=== PATIENT | female | born 1950 | race Caucasian/White ===

== ENCOUNTER → 2019-06-25 10:21 | Outpatient (BNVA) | payer MEDICARE, MEDICAID, SELFPAY | PROVIDERS: Family Provider Registered Nurse; PCP Registered Nurse; Visit Provider Registered Nurse | DX: Z09 Encounter for follow-up examination after completed treatment for conditions other than malignant neoplasm (principal); A09 Infectious gastroenteritis and colitis, unspecified | CPT/HCPCS: 80053; 85025 ==

== ENCOUNTER → 2020-02-27 09:35 | Outpatient (BNVA) | payer MEDICARE, MEDICAID, SELFPAY | PROVIDERS: Family Provider Registered Nurse; PCP Registered Nurse; Visit Provider Registered Nurse | DX: R53.83 Other fatigue (principal); E55.9 Vitamin D deficiency, unspecified; Z95.5 Presence of coronary angioplasty implant and graft | CPT/HCPCS: 80053; 81000; 82306; 82607; 84443; 85025 ==

== ENCOUNTER → 2020-10-19 11:07 | Outpatient (BNVA) | payer MEDICARE, MEDICAID, SELFPAY | PROVIDERS: Family Provider Registered Nurse; PCP Registered Nurse; Visit Provider Registered Nurse | DX: I10 Essential (primary) hypertension (principal); E78.5 Hyperlipidemia, unspecified; J44.9 Chronic obstructive pulmonary disease, unspecified; K21.9 Gastro-esophageal reflux disease without esophagitis | CPT/HCPCS: 80053; 80061; 84443 ==

== ENCOUNTER → 2020-12-14 13:23 | Outpatient (BNVA) | payer MEDICARE, MEDICAID, SELFPAY | PROVIDERS: Family Provider Registered Nurse; PCP Registered Nurse; Visit Provider Registered Nurse | DX: I10 Essential (primary) hypertension (principal); M19.071 Primary osteoarthritis, right ankle and foot; E78.00 Pure hypercholesterolemia, unspecified | CPT/HCPCS: 85025; 85651; 86140 ==

== ENCOUNTER → 2021-01-03 15:11 | Outpatient (BNVA) | payer MEDICARE, MEDICAID, SELFPAY | PROVIDERS: Family Provider Registered Nurse; PCP Registered Nurse; Visit Provider Registered Nurse | DX: R51.9 Headache, unspecified (principal); Z20.822 Contact with and (suspected) exposure to COVID-19 | CPT/HCPCS: 87635 ==

== ENCOUNTER → 2021-10-19 10:53 | Outpatient (BNVA) | payer MEDICARE, MEDICAID, SELFPAY | PROVIDERS: Family Provider Registered Nurse; PCP Registered Nurse; Visit Provider Registered Nurse | DX: I10 Essential (primary) hypertension (principal); J44.9 Chronic obstructive pulmonary disease, unspecified | CPT/HCPCS: 80053; 80061; 85025 ==

== ENCOUNTER 2022-01-30 11:23 | Outpatient (CLI) | payer MEDICARE, MEDICAID, SELFPAY ==
--- NOTE | 2022-01-30 11:00 | CT_ITS ---
WS: [id number] LDCT LUNG CANCER SCREENING TECHNIQUE: Noncontrast CT of the chest with coronal and sagittal reformatted images. CLINICAL INFORMATION: Z12.2 - Encounter for screening for malignant neoplasm of... COMPARISON: None. DLP: 86.11 mGy.cm DIvol: Mean CTDIvol: 1.60 (mGy) All CT scans at [facility] use at least one of these dose optimization techniques: automat ed exposure control; mA and/or kV adjustment per patient size (includes targeted exams where dose is matched to clinical indication); or iterative reconstruction. FINDINGS: Groundglass opacity in the LEFT lower lobe about the LEFT inferior hilum with associated bronchovascu lar thickening. This measures approximately 3.3 x 4.5 x 4.1 cm AP by transverse by craniocaudal. This may be infectious or inflammatory in etiology but alveolar carcinoma not excluded. This can be furth er evaluated PET/CT or short-term interval follow-up in 3 months. Additional nonspecific groundglass opacities in the RIGHT upper lobe. RIGHT thyroid nodule measuring 14 mm. Ectatic ascending thoracic aorta measuring 4.1 cm. Vascular narayan cification including coronary. No mediastinal or hilar lymphadenopathy. Adrenal glands are normal. Small esophageal hiatal hernia. CT/CT lung screening 89239 IMPRESSION: Nonspecific LEFT lower lobe groundglass opacity measuring 3.3 x 4.5 x 4.1cm. This can be further evaluated PET/CT versus 3 month follow-up LUNG-RADS: 4A-Probably Suspicious FOLLOW UP: 3 Month LDCT
== END 2022-01-30 11:24 | disposition home or self-care (01) ==
LOC: RAD 11:24
PROVIDERS: Family Provider Registered Nurse; PCP Registered Nurse; Visit Provider Registered Nurse
DX: Z12.2 Encounter for screening for malignant neoplasm of respiratory organs (principal)
CPT/HCPCS: 71271

== ENCOUNTER → 2022-02-07 08:37 | Outpatient (BNVA) | payer MEDICARE, MEDICAID, SELFPAY | PROVIDERS: Family Provider Registered Nurse; PCP Registered Nurse; Visit Provider Surgery | DX: Z12.11 Encounter for screening for malignant neoplasm of colon (principal) | CPT/HCPCS: 99213 ==

== ENCOUNTER 2022-02-23 14:12 | Outpatient (CLI) | payer MEDICARE, MEDICAID, SELFPAY ==
--- NOTE | 2022-02-23 14:19 | MM_ITS ---
WS: [id number] Bilateral screening 3D tomosynthesis digital mammogram, 02/23/2022 Clinical Data: Z12.39 - Encounter for other screening for malignant neop... Comparison: 05/20/2015. Findings: The breast parenchymal pattern shows heterogeneous density. No spiculated masses or clustered calcifi cations are seen. There are no secondary signs of carcinoma. There are mole markers on the left breas t. There are benign calcifications in both breasts. MM/[place] [id number] Impression: 1. Negative bilateral mammogram unchanged. 2. Recommend annual screening mammograms. BIRADS: 1-Negative FOLLOW UP: 1 Year Follow-up The CAD radio program checker was used.
--- NOTE | 2022-02-23 14:19 | XR_ITS ---
WS: [id number] DEXA (DUAL ENERGY X-RAY ABSORPTIOMETRY) Bone mineral density was performed using a Ringly machine. HISTORY: M81.0 - Age-related osteoporosis without current pathology... COMPARISON: None available. Lumbar spine BMD (L1-L4): 1.151 g/cm2 T score: -0.2 Z score: 1.9 Total hip BMD: Left: 0.698 g/cm2. T score: -2.5 Z score: -0.6 Right: 0.680 g/cm2. T score: -2.6 Z score: -0.7 10 year probability of a major osteoporotic fracture is 21.8%. XR/XR DEXA axial skeleton* 08674 IMPRESSION: OSTEOPOROSIS based upon the WHO classification for females.
== END 2022-02-23 14:13 | disposition home or self-care (01) ==
LOC: RAD 14:13
PROVIDERS: Family Provider Registered Nurse; PCP Registered Nurse; Visit Provider Registered Nurse
DX: Z12.31 Encounter for screening mammogram for malignant neoplasm of breast (principal); M81.0 Age-related osteoporosis without current pathological fracture
CPT/HCPCS: 77063; 77067; 77080

== ENCOUNTER 2022-04-19 08:04 | Day surgery (SDC) | payer MEDICARE, MEDICAID, SELFPAY ==
[2022-04-17 13:57] VITALS: BMI 20.7
[2022-04-19 08:32] VITALS: BP 156/86; PULSE 67; RESP 20; TEMP 36.1; O2SAT 98
[2022-04-19] MEDS: sodium chloride 0.9% 1,000 ML 30 ML IV (08:35)
--- NOTE | 2022-04-19 09:08 | ANES.PREANE2 ---
Pre-Anesthetic Assessment Height/Weight: Height 1.6 m Weight 53.07 kg Temp Pulse Resp BP Pulse Ox O2 Del Method 97 F L 67 20 H 156/86 98 04/19/22 08:32 04/19/22 08:32 04/19/22 08:32 04/19/22 08:32 04/19/22 08:32 04/19/22 08:32 Operation Date: 04/19/22 09:45 Proposed Procedures p Colonoscopy 52935,Z12.11(Not Applicable) - Camilo Chadwick DO Familial anesthetic complications: None Was Beta Millicent taken within 24 hours: Yes Was Clonidine taken within 24 hours: N/A Last intake: Intake Last Liquid Date 04/18/22 Last Liquid Time 17:00 Last Solid Date 04/17/22 Last Solid Time 17:00 Social No alcohol and No tobacco Exam alert, oriented x 3, clear to auscultation bilaterally and regular rate & rhythm Airway Mallampati: Class II Dentition: false Pulmonary Chronic Obstructive Pulmonary Disease CV/HEM Coronary Artery Disease (stents in 2013), Hypertension and Myocardial Infarction (2013) Chronic Renal Insufficiency Metabolic Hyperlipidemia Anesthetic Plan ASA status: 3 Anesthesia: MAC Risk of > 500 ml blood loss (7ml/kg in children): No Medications/Allergies Home Medications Medication Instructions Recorded Confirmed Last Taken Type aspirin 81 mg tablet,delayed 81 mg PO DAILY 06/24/19 04/17/22 04/15/22 History release (Adult Aspirin Regimen) albuterol sulfate 90 mcg/actuation 2 puff inhalation Q6H PRN 04/17/22 04/17/22 04/18/22 History aerosol inhaler Shortness Of Breath amlodipine 5 mg tablet 5 mg PO BID 04/17/22 04/17/22 04/18/22 History budesonide-formoterol HFA 160 2 puff inhalation BID 04/17/22 04/17/22 04/18/22 History mcg-4.5 mcg/actuation aerosol inhaler (Symbicort) metoprolol tartrate 25 mg tablet 25 mg PO BID 04/17/22 04/17/22 04/18/22 History simvastatin 40 mg tablet 40 mg PO DAILY 04/17/22 04/17/22 04/18/22 History umeclidinium 62.5 mcg/actuation 1 inh inhalation DAILY 04/17/22 04/17/22 04/18/22 History blister powder for inhalation (Incruse Ellipta) Allergies Allergy/AdvReac Type Severity Reaction Status Date / Time No Known Allergies Allergy Verified 04/17/22 13:47 Current Medications Generic Name Dose Route Start Last Admin Trade Name Freq PRN Reason Stop Dose Admin Sodium Chloride 1,000 mls @ 30 mls/hr 04/19/22 08:15 04/19/22 08:35 Sodium Chloride 0.9% IV 04/20/22 08:14 30 mls/hr .Q24H JOYCE Administration PFSH Anesthesia Medical History COPD (chronic obstructive pulmonary disease) Dental caries Enrolled in chronic care management Hypercholesterolemia Hypertension Infectious gastroenteritis and colitis Myocardial infarction Surgical History H/O colonoscopy 07/18/16 H/O eye surgery as a child from crossed eyes H/O: hysterectomy 1980 partial History of coronary artery stent placement Family History Father Cancer lung Denies family history of Anesthesia complication Bleeding disorder Social History Smoking and tobacco status: former smoker (1999) Alcohol intake: never Marital status: Single Current occupational status: retired Data Anesthesia Cardiac Studies: No Data to Display
--- NOTE | 2022-04-19 10:28 | PM.HP ---
Providers/Chief Complaint Primary Care Provider: DANA Dawkins Chief Complaint: Z12.11 Screening History of Present Illness Grecia Nick is a 71 year old female here for colonoscopy Medications/Allergies Home Medications Medication Instructions Recorded Confirmed Last Taken Type aspirin 81 mg tablet,delayed 81 mg PO DAILY 06/24/19 04/17/22 04/15/22 History release (Adult Aspirin Regimen) albuterol sulfate 90 mcg/actuation 2 puff inhalation Q6H PRN 04/17/22 04/17/22 04/18/22 History aerosol inhaler Shortness Of Breath amlodipine 5 mg tablet 5 mg PO BID 04/17/22 04/17/22 04/18/22 History budesonide-formoterol HFA 160 2 puff inhalation BID 04/17/22 04/17/22 04/18/22 History mcg-4.5 mcg/actuation aerosol inhaler (Symbicort) metoprolol tartrate 25 mg tablet 25 mg PO BID 04/17/22 04/17/22 04/18/22 History simvastatin 40 mg tablet 40 mg PO DAILY 04/17/22 04/17/22 04/18/22 History umeclidinium 62.5 mcg/actuation 1 inh inhalation DAILY 04/17/22 04/17/22 04/18/22 History blister powder for inhalation (Incruse Ellipta) Allergies Allergy/AdvReac Type Severity Reaction Status Date / Time No Known Allergies Allergy Verified 04/17/22 13:47 PFSH Acute PFSH: Medical History COPD (chronic obstructive pulmonary disease) Dental caries Enrolled in chronic care management Hypercholesterolemia Hypertension Infectious gastroenteritis and colitis Myocardial infarction Surgical History H/O colonoscopy 07/18/16 H/O eye surgery as a child from crossed eyes H/O: hysterectomy 1980 partial History of coronary artery stent placement Family History Father Cancer lung Denies family history of Anesthesia complication Bleeding disorder Social History Smoking and tobacco status: former smoker (1999) Alcohol intake: never Marital status: Single Current occupational status: retired Vitals/I&O/Wt Last Vital Signs Temp 97 F L 04/19/22 08:32 Pulse 67 04/19/22 08:32 Resp 20 H 04/19/22 08:32 BP 156/86 04/19/22 08:32 Pulse Ox 98 04/19/22 08:32 O2 Del Method 04/19/22 08:32 Weight last 48 hrs Weight 117 lb A&P Assessment and plan (1) Encounter for screening colonoscopy: Plan Colonoscopy Attestations Medical Necessity Statement*: Home Coding Level of Care Code 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
[2022-04-19 10:50] VITALS: BP 110/68; PULSE 70; RESP 14; TEMP 36.3; O2SAT 99
[2022-04-19 11:00] VITALS: BP 125/79; PULSE 75; RESP 18; O2SAT 97
--- NOTE | 2022-04-19 12:46 | ANE.PACU2 ---
Inpatient post-anesthesia follow up: Airway intact: Yes Vital signs: Temperature 97.4 F Pulse Rate 75 Respiratory Rate 18 Blood Pressure 125/79 Pulse Oximetry 97 Oxygen Delivery Me thod Room Air Oxygen Flow Rate 4 Fraction of Inspir ed Oxygen Hydration adequate: Yes Nausea and vomiting: No Pain level: 1 Mental status: Baseline
== END 2022-04-19 11:18 | disposition home or self-care (01) ==
PROVIDERS: PCP Registered Nurse; Visit Provider Surgery
PROC: 0DJD8ZZ Inspection of Lower Intestinal Tract, Via Natural or Artificial Opening Endoscopic (ICD-10-PCS; CPT 45378; principal; 2022-04-19 09:45)
DX: Z12.11 Encounter for screening for malignant neoplasm of colon (principal); Z86.010 Personal history of colon polyps; Z79.82 Long term (current) use of aspirin; J44.9 Chronic obstructive pulmonary disease, unspecified; E78.00 Pure hypercholesterolemia, unspecified; I10 Essential (primary) hypertension; I25.2 Old myocardial infarction; Z87.891 Personal history of nicotine dependence; I25.10 Atherosclerotic heart disease of native coronary artery without angina pectoris; Z95.5 Presence of coronary angioplasty implant and graft; E78.5 Hyperlipidemia, unspecified
CPT/HCPCS: G0121; J2704; J7030

== ENCOUNTER 2022-07-19 14:57 | Outpatient (CLI) | payer MEDICARE, MEDICAID, SELFPAY ==
--- NOTE | 2022-07-19 16:00 | US_ITS ---
WS: [id number] THYROID ULTRASOUND HISTORY: E04.1 - Nontoxic single thyroid nodule COMPARISON: PET CT 02/11/2022 Right lobe: 2.2 cm x 1.6 cm x 4.4 cm (w x ap x l). Volume: 8.2 cm3. Normal size gland. Markedly hypervascular, hypoechoic nodule in the mid gland measures 2.1 x 1.3 x 2. 1 cm. Hypoechoic nodule with no cystic component. Margins are superimposed. There are a few scattered echogenic foci. Left lobe: 1.1 cm x 1.3 cm x 3.0 cm (w x ap x l). Volume: 2.3 cm3. Normal size and echotexture. No significant or dominant nodules are present. Isthmus: 0.4 cm. US/US thyroid 62100 IMPRESSION: 1. Mid RIGHT thyroid nodule, (TI-RADS 7). Highly suspicious nodule. This was also positive on recent PET/CT. Recommend surgical removal. Thyroid nodule is h ypervascular. 2. Negative LEFT thyroid.
== END 2022-07-19 14:58 | disposition home or self-care (01) ==
LOC: RAD 15:04
PROVIDERS: PCP Registered Nurse; Visit Provider Registered Nurse
DX: E04.1 Nontoxic single thyroid nodule (principal)
CPT/HCPCS: 76536

== ENCOUNTER → 2022-09-12 10:47 | Outpatient (BNVA) | payer MEDICARE, MEDICAID, SELFPAY | PROVIDERS: PCP Registered Nurse; Visit Provider Specialist | DX: I10 Essential (primary) hypertension (principal); Z95.5 Presence of coronary angioplasty implant and graft; E78.00 Pure hypercholesterolemia, unspecified; Z79.82 Long term (current) use of aspirin; Z87.891 Personal history of nicotine dependence | CPT/HCPCS: 93005; 99214 ==

== ENCOUNTER 2022-09-26 07:02 | Outpatient (CLI) | payer MEDICARE, MEDICAID, SELFPAY ==
--- NOTE | 2022-09-26 07:15 | USCV_ITS ---
Grecia Nick Age: 72 Gender: F : 1950 Exam Date: 09/26/2022 07:41 Ordering Phys: Shantell Peterson MD ([email or web address]) Technologist: YANIV [place] [facility] [place]: CHEST PAIN BP: 140 / 60 HR: 71 Rhythm: Sinus Technical Quality: Adequate MEASUREMENTS (Male / Female) Normal Values 2D ECHO LVOT Diameter 2.0 cm LV Ejection Fraction MOD 2C 61.3 % LV Ejection Fraction 2C AL 63.3 % LA Diameter 3.1 cm LA Width 3.8 cm LA Height 4.5 cm RA Width 3.3 cm RA Height 4.3 cm Aorta at Sinotubular Diameter 2.5 cm IVC Diameter 1.1 cm M-MODE Aortic Annulus Diameter 2.9 cm LA Ao Ratio MM 1.1 MV E Point Septal Separation 0.5 cm DOPPLER AV Peak Velocity 149.0 cm/s LVOT Peak Velocity 115.0 cm/s AV Area Cont Eq vti 2.7 cm squared AV Area Cont Eq pk 2.4 cm squared MV Peak Velocity 93.0 cm/s MV Area PHT 2.9 cm squared Mitral E to A Ratio 0.8 MV E' Velocity 44.5 cm/s Mitral E to MV E' Ratio 8.7 Mitral E to LV E' Lateral Ratio 9.6 Mitral E to LV E' Septal Ratio 7.9 TR Peak Velocity 162.7 cm/s TR Peak Gradient 10.6 mmHg TR Mean Velocity 123.6 cm/s TR Mean Gradient 6.4 mmHg TR Velocity Time Integral 46.3 cm TV Peak E Velocity 69.0 cm/s Right Atrial Pressure 8.0 mmHg Pulmonary Artery Systolic Pressu 18.6 mmHg PV Peak Velocity 116.0 cm/s RV Acceleration Time 0.1 s RV Ejection Time 0.3 s RV AcT/ET 0.4 FINDINGS Left Ventricle Left ventricle is normal in size. LV systolic function is normal with EF of 55 to 60%. No regional wall motion abnormalities are seen. Grade 1 diastolic dysfunction Right Ventricle Normal in size and function Right Atrium Normal in size Left Atrium Dilated Mitral Valve Structurally normal mitral valve. Trace mitral regurgitation. Aortic Valve Structurally normal aortic valve. No significant stenosis or regurgitation. Tricuspid Valve Mild tricuspid regurgitation. Pulmonary artery systolic pressure is normal. Pulmonic Valve Not well visualized Pericardium Normal Aorta Normal in size IVC Appears to be normal CONCLUSIONS LV systolic function is normal with EF 55 to 60%. Grade 1 diastolic dysfunction Left atrial dilation Trace mitral regurgitation Mild tricuspid regurgitation No comparison studies are available Francisco Flores MD (Electronically Signed) Final Date: 27 September 2022 11:49 S
== END 2022-09-26 07:03 | disposition home or self-care (01) ==
LOC: RAD 07:09
PROVIDERS: PCP Registered Nurse; Visit Provider Specialist
DX: I25.2 Old myocardial infarction (principal); Z01.818 Encounter for other preprocedural examination; Z95.5 Presence of coronary angioplasty implant and graft
CPT/HCPCS: 93306

== ENCOUNTER 2022-09-26 07:12 | Outpatient (CLI) | payer MEDICARE, MEDICAID, SELFPAY ==
[2022-09-26 08:03] VITALS: BMI 20.7
--- NOTE | 2022-09-26 08:19 | ECG_ITS ---
[facility] Test Date: 2022-09-26 Pat Name: Grecia Nick Department: Room: Gender: Female [employer] Helper: : 1950 Requested By: Shantell Peterson Order Number: [id number] Octavio MD: Ajay Echeverria M.D. Interpretive Statements NAME OF STUDY: LEXISCAN SESTAMIBI STRESS TEST INDICATION: Cardiac clearance, PROCEDURE: At the baseline, the EKG revealed normal sinus rhythm with some nonspecific T wave changes. The baseline heart was 79 bpm with a blood pressue of 148/70 mm of Hg. Lexiscan was infused over a period of 20 seconds. A total of 0.4 milligrams of Lexiscan was infused. The stress phase was continued for a total of 5 minutes. Heart rate at the end of the stress phase was 108 bpm with a blood pressure 130/64 mm of Hg. The EKG at the peak infusion revealed no significant changes. Sestamibi was injected 20 seconds after the Lexiscan infusion. Heart rate at the end of the recovery phase was thank you for the opportunity to evaluate this patient and make these recommendations bpm with a blood pressure of 119/63 mm of Hg. CONCLUSION: 1. No significant EKG changes with the LexiScan infusion 2. No LexiScan induced chest pain or cardiac arrhythmia 3. Normal blood pressure and heart rate response 4. Sestamibi/sestamibi perfusion scan pending; see separate report. Electronically Signed On 10-01-2022 17:00:32 CDT by jAay Echeverria M.D. [email or web address]
--- NOTE | 2022-09-26 08:19 | NMCV_ITS ---
NM nadya perf SPECT r/s* [id number] Grecia Nick Age: 72 Gender: F : 1950 Exam Date: 09/26/2022 09:15 Ordering Phys: Shantell Peterson MD ([email or web address]) Technologist: KRUPA Vanegas Exam Location: [facility] Indications: CORONARY ANGIOPLASTY STATUS, ATHEROSCLEROTIC HEART DISEASE STRESS TEST Please see separate stress test report in [facility] for full findings IMAGE PROTOCOL Rest/Stress 1 Lexiscan Day Radiopharmaceutical Dose (mCi) Administration Site Administered by Rest: Tc-99m 10.8 IV KRUPA Hannah Sestamibi Stress:Tc-99m 32.4 IV KRUPA Hannah Sestamibi Rest: 26-Sep-2022 60 Discovery 630 Stress: 26-Sep-2022 30 Discovery 630 0.4mg Lexiscan. Images obtained in supine and prone position. SPECT RESULTS Technical Quality: Excellent Raw Data Analysis: Normal Image Corrections: No attenuation or motion correction applied Summed Stress Score: 0 Summed Rest Score: 3 Summed Difference Score: 0 PERFUSION FINDINGS Fairly uniform myocardial tracer uptake with no significant perfusion normalities FUNCTIONAL RESULTS (calculated via Gated SPECT) Stress Image LV EF (%): 75 Stress EDV (mL):56 TID: 0.89 Stress ESV (mL):14 FUNCTIONAL FINDINGS: Segmental wall motion analysis revealing no gross wall motion abnormalities IMPRESSIONS 1. Fairly uniform myocardial tracer uptake with no significant perfusion abnormalities. 2. Normal LV ejection fraction 75%. 3. LV wall motion analysis revealing no gross wall motion abnormalities. 4. Normal LV volume Low probability for coronary ischemia, based on the above findings Dr Ajay Echeverria MD FACC (Electronically Signed) Final Date: 26 September 2022 17:31 S
[2022-09-26] MEDS: regadenoson 0.4 Mg/5 ml Syringe IVP (10:08)
[2022-09-26 10:30] VITALS: BP 119/63; PULSE 94
== END 2022-09-26 07:13 | disposition home or self-care (01) ==
LOC: CDL 07:15
PROVIDERS: PCP Registered Nurse; Visit Provider Specialist
DX: I25.10 Atherosclerotic heart disease of native coronary artery without angina pectoris (principal); Z98.62 Peripheral vascular angioplasty status
CPT/HCPCS: 36415; 78452; 93017; 93306; 96374; A9500; J2785

== ENCOUNTER → 2022-10-04 10:54 | Outpatient (BNVA) | payer MEDICARE, MEDICAID, SELFPAY | PROVIDERS: PCP Nurse Practitioner Family; Visit Provider Internal Medicine Cardiovascular Disease | DX: Z01.810 Encounter for preprocedural cardiovascular examination (principal); E04.1 Nontoxic single thyroid nodule; I25.2 Old myocardial infarction; Z95.5 Presence of coronary angioplasty implant and graft; F41.8 Other specified anxiety disorders; I10 Essential (primary) hypertension; E78.00 Pure hypercholesterolemia, unspecified; J44.9 Chronic obstructive pulmonary disease, unspecified; Z87.891 Personal history of nicotine dependence; Z79.82 Long term (current) use of aspirin | CPT/HCPCS: 80053; 80061; 84439; 84443; 84481; 99213 ==

== ENCOUNTER 2022-10-24 13:44 | Observation (INO) | payer MEDICARE, MEDICAID, SELFPAY ==
[2022-10-23 09:05] VITALS: BMI 21.4
[2022-10-24] VITALS (26 sets, daily range): BP systolic 126–165; BP diastolic 57–100; PULSE 62–108; RESP 11–34; TEMP 36.3–36.6; O2SAT 92–97
[2022-10-24] MEDS: sodium chloride 0.9% 1,000 ML 30 ML IV (10:01)
--- NOTE | 2022-10-24 10:45 | W.PM.OPSUD ---
Surgery/Procedure H&P Update DATE OF PROCEDURE: October 24, 2022 DATE H&P PERFORMED: 10/16/22 PRIMARY INDICATION FOR PROCEDURE: Right thyroid nodule with suspicious FNA biopsy PLANNED PROCEDURE: Operation Date: 10/24/22 11:00 Proposed Procedures p Right Hemithyroidectomy 05818,E04.1(Right) - Stewart Rosen MD
[2022-10-24] MEDS: ceFAZolin 2,000 MG in sodium chloride 0.9% (plus) 50 ML 100 MG IV ×2 (10:55→18:18)
[2022-10-24] MEDS: neomycin-poly-bacitracin oint 28 gm 1 APPLIC TOPICAL (11:00)
[2022-10-24] MEDS: fluorescein 1 mg Strip XX (11:45)
[2022-10-24] MEDS: ceFAZolin 1,000 mg SDV 1000 MG IRRIGATION (12:00)
[2022-10-24] MEDS: lidocaine-epi 1% 20 mL INJ INJECTION (12:15)
[2022-10-24] MEDS: triamcinolone 40 mg/mL SDV IM (12:15)
[2022-10-24] MEDS: EPINEPHrine 1 mg/mL INJ 3 MG XX (12:15)
[2022-10-24] MEDS: thrombin 5,000 unit SDV 5000 UNIT XX (12:15)
--- NOTE | 2022-10-24 13:16 | P.OP_ITS ---
Operative Report Date of procedure: October 24, 2022 Pre-op diagnosis: Right thyroid nodule with a suspicious FNA Biopsy Post-op diagnosis: same Post-op findings: Right thyroid nodule O/W normal right anterior neck exam Procedure done: right thyroid lobectomy Implants: None Specimens removed/disposition: Right thyroid lobe Pathology: Right thyroid lobe Surgeon: Stewart Rosen Orthopedic Nurse Practitioner: Magdy Ng Anesthesia: General Estimated blood loss (mL): 5 IV fluids (mL): 600 Complications: None Findings: Right thyroid nodule - midpole Intact recurrent right laryngeal nerve Intact/viable right upper and right lower parathyroid glands O/W normal right anterior neck exam Condition: stable Disposition: ICU Brief History: 72 yo wf with a h/o a PET positive right thyroid lobe nodule with a supicious FNA biopsy who desires thyroid lobectomy. Procedure: The patient was identified in the preop holding area taken the operating where he was placed on the operating table in the supine position. Anesthesia was obtained with general endotracheal anesthesia. The Nirvana nerve monitoring electrode was placed on the patient's endotracheal tube prior to intubation and its position was ensured using the glide scope. At this point an incision was drawn out between the heads of the sternocleidomastoid muscles 2 fingerbreadths above the sternal notch and was injected with local anesthesia. The patient was then prepped and draped in the usual sterile fashion. The incision was then made with a 15 blade and was carried down through the subcutaneous tissues using electrocautery. The dissection proceeded down to the strap muscles which were then elevated off of the right thyroid lobe. The trachea and larynx were exposed and the thyroid isthmus was dissected off of the anterior trachea. The thyroid isthmus was then divided with the harmonic scalpel. At this point attention was turned to the right thyroid lobe which was dissected circumferentially down to the tracheoesophageal groove. The Nirvana nerve monitoring hemostat was used to stimulate the vagus nerve in the carotid sheath to ensure the integrity of the monitoring system. At this point attention was turned to the right inferior pole of the thyroid right thyroid lobe which was dissected free from the surrounding tissues. The thyrothymic horn was dissected off of the inferior pole as well as the middle thyroid vein. The right thyroid lobe was then rotated medially and then dissection began on the capsule of the right thyroid lobe in the tracheoesophageal groove. The superior pole vessels were dissected individually and were clamped with ligaclips and divided. As the right thyroid lobe was rotated medially the recurrent laryngeal nerve and superior laryngeal nerves were identified and preserved in place. The superior and inferior parathyroid glands were also identified and preserved in place bilaterally. Once this was accomplished, hemostasis was achieved with bipolar cautery and the tracheoesophageal groove was inspected for hemostasis which was found to be adequate. At this point the tracheoesophageal groove was filled with Gelfoam soaked in thrombin and Decadron, and a drain was placed in the wound. The wound was then closed with interrupted 4 Monocryl sutures subcu and a 5-0 Monocryl in the subcuticular space. The final closure was accomplished with Dermabond and Steri-Strips. At this point the procedure was terminated and control of the patient was returned to anesthesia where she underwent an uneventful reversal of anesthesia and extubation was taken to recovery in stable condition. There were no operative or anesthetic complications.
--- NOTE | 2022-10-24 13:39 | ANES.PREANE2 ---
Pre-Anesthetic Assessment Height/Weight: Height 1.6 m Weight 54.885 kg Temp Pulse Resp BP Pulse Ox O2 Del Method 97.4 F L 62 16 165/99 97 Room Air 10/24/22 09:47 10/24/22 09:47 10/24/22 09:47 10/24/22 09:47 10/24/22 09:47 10/24/22 09:48 Operation Date: 10/24/22 11:00 Proposed Procedures p Right Hemithyroidectomy 04561,E04.1(Right) - Stewart Rosen MD Familial anesthetic complications: none Was Beta Millicent taken within 24 hours: Yes Was Clonidine taken within 24 hours: N/A Last intake: Intake Last Liquid Date 10/23/22 Last Liquid Time 22:00 Last Solid Date 10/23/22 Last Solid Time 18:00 Social Tobacco and No alcohol Exam alert, oriented x 3, clear to auscultation bilaterally and regular rate & rhythm Airway Submandibular: within normal limits Cervical ROM: within normal limits Mallampati: Class II Dentition: false Pulmonary Chronic Obstructive Pulmonary Disease CV/HEM Coronary Artery Disease (stent), Hypertension, Myocardial Infarction and Peripheral Vascular Disease Metabolic Thyroid Disease Anesthetic Plan ASA status: 3 Anesthesia: General Medications/Allergies Home Medications Medication Instructions Recorded Confirmed Last Taken Type aspirin 81 mg tablet,delayed 81 mg PO DAILY 06/24/19 10/23/22 10/16/22 History release (Adult Aspirin Regimen) budesonide-formoterol HFA 160 2 puff inhalation BID #10.2 grams 05/30/22 10/23/22 10/23/22 Rx mcg-4.5 mcg/actuation aerosol inhaler (Symbicort) Lactobacillus acidophilus 1,000 mmu cells PO DAILY 09/12/22 10/23/22 10/23/22 History (Acidophilus capsule) calcium citrate 200 mg (950 mg) 200 mg PO DAILY 09/12/22 10/23/22 Unknown History tablet alprazolam 0.25 mg tablet 0.125 mg PO DAILY 10/04/22 10/23/22 10/24/22 07:30 History umeclidinium 62.5 mcg/actuation See Rx Instructions .Route 10/17/22 10/23/22 10/23/22 Rx blister powder for inhalation .COMPLEX #30 ea (Incruse Ellipta) albuterol sulfate 90 mcg/actuation 2 inh inhalation Q6H PRN Shortness 10/23/22 10/23/22 10/22/22 History aerosol inhaler Of Breath amlodipine 5 mg tablet 5 mg PO BID 10/23/22 10/23/22 10/23/22 History metoprolol tartrate 25 mg tablet 25 mg PO BID 10/23/22 10/23/22 10/24/22 07:30 History simvastatin 40 mg tablet 40 mg PO DAILY 10/23/22 10/23/22 10/22/22 History Allergies Allergy/AdvReac Type Severity Reaction Status Date / Time No Known Allergies Allergy Verified 10/23/22 09:00 Current Medications Generic Name Dose Route Start Last Admin Trade Name Freq PRN Reason Stop Dose Admin Sodium Chloride 1,000 mls @ 30 mls/hr 10/24/22 09:45 10/24/22 10:01 Sodium Chloride 0.9% IV 10/25/22 09:44 30 mls/hr .Q24H JOYCE Administration PFSH Anesthesia Medical History COPD (chronic obstructive pulmonary disease) Dental caries Enrolled in chronic care management Hypercholesterolemia Hypertension Infectious gastroenteritis and colitis Myocardial infarction Surgical History H/O colonoscopy 07/18/16 H/O eye surgery as a child from crossed eyes H/O: hysterectomy 1980 partial History of coronary artery stent placement S/P cataract surgery Family History Father Cancer lung Mother Thyroid disease Denies family history of Anesthesia complication Bleeding disorder Social History Smoking and tobacco status: former smoker (1999) Alcohol intake: never Substance/Drug Use: never Marital status: Single Current occupational status: retired Data Anesthesia Cardiac Studies: Echocardiogram 09/26/22 Sestamibi Stress Test (Cardiology) 09/26/22
--- NOTE | 2022-10-24 14:50 | ANE.PACU2 ---
Inpatient post-anesthesia follow up: Airway intact: Yes Vital signs: Temperature 97.4 F Pulse Rate 80 Respiratory Rate 16 Blood Pressure 165/99 Pulse Oximetry 94 Oxygen Delivery Me thod Room Air Oxygen Flow Rate Fraction of Inspir ed Oxygen Hydration adequate: Yes Nausea and vomiting: No Pain level: 3 Mental status: Baseline
[2022-10-24] MEDS: albuterol 2.5 mg/3 mL Neb INHALATION ×2 (16:05→20:07)
[2022-10-24] MEDS: amlodipine 5 mg Tablet PO (16:24)
[2022-10-24] MEDS: lactated ringers 1,000 ML 100 ML IV (16:25)
--- NOTE | 2022-10-24 17:37 | PM.PN ---
Subjective Subjective: 72 yo wf who is night of surgery s/p right hemithyroidectomy. The patient reports that she is doing well. She is o/w without c/o. Medications: Reviewed: Yes Vitals/I&O/Wt Last Vital Signs Temp 97.4 F L 10/24/22 09:47 Pulse 74 10/24/22 16:05 Resp 16 10/24/22 15:55 BP 165/99 10/24/22 09:47 Pulse Ox 95 10/24/22 15:55 O2 Del Method Room Air 10/24/22 15:55 10/24/22 10/24/22 10/24/22 06:59 14:59 22:59 Intake Total 50 / 50 Output Total 0 / 0 Balance 50 / 50 Weight last 48 hrs Weight 54.885 kg Physical Exam Const: COMMON NORMALS: no acute distress and patient oriented x3 HENMT: COMMON NORMALS: normocephalic and Normal external nose present HEAD & SCALP: normocephalic FACE & SINUS: normal facial exam NOSE: Normal external nose present Eye: COMMON NORMALS: EOMs intact bilaterally and conjunctivae normal CONJUNCTIVA: Yes conjunctivae normal Neck/C-Spine: COMMON NORMALS: no lymphadenopathy and supple GENERAL: Yes other (The neck wound is intact without swelling. Voice unchanged from preop. ) Chest: COMMONS NORMALS: normal inspection of the chest Resp: COMMON NORMALS: normal respiratory effort, No retractions, No use of accessory muscles and clear to auscultation bilaterally AUSCULTATION: clear to auscultation bilaterally Cardio: COMMON NORMALS: regular rate, regular rhythm and No murmurs present (Cardio) RATE: regular rate RHYTHM: regular rhythm Extremity: COMMON NORMALS: normal to inspection Neuro: COMMON NORMALS: patient oriented x3 Urinary Catheter Management: Tapia: Cath Placed During This Visit: yes Urinary Catheter Date of Insertion: 10/24/22 Urinary Catheter Time of Insertion: 11:40 A&P Assessment and plan (1) Thyroid nodule: Impression: 72 yo wf night of surgery s/p right hemithyroidectomy doing well Plan: - Overnight ICU observation - Closed suction drainage - Pain control - Regular diet - Anticipate d/c in the am Attestations Medical Necessity Statement*: The patient requires overnight observation of her airway Coding Level of Care Code Acute Code for Chg Fwd Diagnoses Thyroid nodule E04.1
--- NOTE | 2022-10-24 18:34 | PC.NURSE ---
Pt was admitted to ICU at 1315 via bed on room air. Daughter at bedside. Pt is resting with all vital signs WNL. Dentures and hearing aid placed at bedside. Stitches and drain present on front of neck.
[2022-10-24] MEDS: budesonide 0.5 mg/2 mL Neb INHALATION (20:06)
[2022-10-24] MEDS: metoprolol tartrate 25 mg Tablet PO (20:53)
[2022-10-24] MEDS: atorvastatin 40 mg Tablet 20 MG PO (20:53)
[2022-10-24] MEDS: famotidine 20 mg/2 mL INJ IVP (20:54)
[2022-10-24] MEDS: HYDROcodone-acetaminophen 5-325 mg Tablet 1 TAB PO (22:40)
[2022-10-25] VITALS (13 sets, daily range): BP systolic 127–153; BP diastolic 66–81; PULSE 70–90; RESP 12–30; TEMP 37–37.1; O2SAT 90–95
[2022-10-25] MEDS: lactated ringers 1,000 ML 100 ML IV (02:49)
[2022-10-25] MEDS: ceFAZolin 2,000 MG in sodium chloride 0.9% (plus) 50 ML 100 MG IV (02:50)
--- NOTE | 2022-10-25 04:40 | PM.PN ---
Subjective Subjective: 72 yo wf who is POD #1 s/p right hemithyroidectomy who is doing well. She reports that she is taking po well. Her pain is well controlled with po Hydrocodone. The patient is o/w without c/o. Medications: Reviewed: Yes Vitals/I&O/Wt Last Vital Signs Temp 97.8 F 10/24/22 20:00 Pulse 70 10/25/22 00:30 Resp 26 H 10/25/22 00:30 BP 131/69 10/25/22 00:30 Pulse Ox 95 10/25/22 00:30 O2 Del Method Room Air 10/24/22 20:00 10/24/22 10/24/22 10/25/22 14:59 22:59 06:59 Intake Total 50 / 50 530 / 580 1000 / 1580 Output Total 0 / 0 Balance 50 / 50 510 / 560 1000 / 1560 Weight last 48 hrs Weight 54.885 kg Physical Exam Const: COMMON NORMALS: no acute distress, patient oriented x3 and alert HENMT: COMMON NORMALS: normocephalic, atraumatic and Normal external nose present HEAD & SCALP: normocephalic and atraumatic FACE & SINUS: normal facial exam NOSE: Normal external nose present MOUTH: lip normal Eye: COMMON NORMALS: Equal, round and reactive pupils present, EOMs intact bilaterally and no scleral icterus PUPIL: Yes Equal, round and reactive pupils present Neck/C-Spine: COMMON NORMALS: full ROM and supple GENERAL: Yes other (Neck wound intact without swelling. Voice unchanged from preop.) Resp: COMMON NORMALS: normal respiratory effort, No retractions, No use of accessory muscles and clear to auscultation bilaterally AUSCULTATION: clear to auscultation bilaterally Cardio: COMMON NORMALS: regular rate, regular rhythm and No murmurs present (Cardio) RATE: regular rate RHYTHM: regular rhythm GI: COMMON NORMALS: Normal to inspection, nondistended, normoactive bowel sounds present Extremity: COMMON NORMALS: normal to inspection Neuro: COMMON NORMALS: patient oriented x3 SENSORIUM/ORIENTATION: Yes alert Urinary Catheter Management: Tapia: Cath Placed During This Visit: yes Urinary Catheter Date of Insertion: 10/24/22 Urinary Catheter Time of Insertion: 11:40 A&P Assessment and plan (1) Thyroid nodule: Impression: Right thyroid nodule with suspicious FNA biopsy doing well s/p right hemithyroidectomy Plan: - Regular diet - D/C to home - Continue closed suction drain - Hydrocodone () tabs: take 1-2 tabs po Q5 hours prn pain, #25, NR - F/U in Dr. Rosen's office on 10/27/22 @ 13:00 - Contact Dr. Rosen for any problems - Resume all preop medications Attestations Medical Necessity Statement*: The patient required overnight observation of her airway Coding Level of Care Code Acute Code for Chg Fwd Diagnoses Thyroid nodule E04.1
[2022-10-25] MEDS: albuterol 2.5 mg/3 mL Neb INHALATION (07:35)
[2022-10-25] MEDS: budesonide 0.5 mg/2 mL Neb INHALATION (07:35)
[2022-10-25] MEDS: metoprolol tartrate 25 mg Tablet PO (08:07)
[2022-10-25] MEDS: amlodipine 5 mg Tablet PO (08:07)
[2022-10-25] MEDS: docusate sodium 100 mg Capsule PO (08:07)
--- NOTE | 2022-10-25 10:28 | PC.NURSE ---
Patient and family at bedside provided with extensive education on JAIRON drain management, surgical site care, S/S of infection and when to seek help. Patient instructed on bathing care at home, follow up appointments, norco use and home medications. Patient and family had no questions at time of discharge, provided with portal information and phone numbers to call if any questions came up at home. Written education provided and reviewed with patient and family member at bedside, both verbalized understanding of all teachings. IV removed by patient at beginning of shift and refusal from patient to restart IV access honored. IV site covered with band-aid, no visible bleeding at time of discharge. Patient brought via wheelchair to personal vehicle with daughter as primary pizza delivery driver.
== END 2022-10-25 10:25 | disposition home or self-care (01) ==
LOC: ICU 20:30
PROVIDERS: Admitting Provider Specialist; PCP Nurse Practitioner Family; Visit Provider Specialist
PROC: (CPT 60220; principal; 2022-10-24 11:00)
DX: C73 Malignant neoplasm of thyroid gland (principal); E04.1 Nontoxic single thyroid nodule; J44.9 Chronic obstructive pulmonary disease, unspecified; I25.10 Atherosclerotic heart disease of native coronary artery without angina pectoris; Z95.5 Presence of coronary angioplasty implant and graft; I10 Essential (primary) hypertension; I25.2 Old myocardial infarction; I73.9 Peripheral vascular disease, unspecified; Z79.82 Long term (current) use of aspirin; Z87.891 Personal history of nicotine dependence
CPT/HCPCS: 60220; 12345; 51702; 88307; 94640; 96376; G0378; J0171; J0330; J0690; J1100; J2250; J2370; J2405; J2704; J3010; J3301; J3490; J7030; J7120; J7613; J7626

== ENCOUNTER 2022-12-12 14:54 | Observation (INO) | payer MEDICARE, MEDICAID, SELFPAY ==
[2022-12-11 12:38] VITALS: BMI 21.0
[2022-12-12] VITALS (28 sets, daily range): BP systolic 115–166; BP diastolic 65–102; PULSE 74–102; RESP 13–21; TEMP 36.4–36.6; O2SAT 91–98
--- NOTE | 2022-12-12 10:21 | ANES.PREANE2 ---
Pre-Anesthetic Assessment Height/Weight: Height 1.6 m Weight 53.977 kg Operation Date: 12/12/22 12:00 Proposed Procedures p Hemithyroidectomy [id number],C73(Left) - Stewart Rosen MD s Total Thyroidectomy(Left) - Stewart Rosen MD Familial anesthetic complications: none Last intake: none Exam alert, oriented x 3, clear to auscultation bilaterally and regular rate & rhythm Pulmonary Chronic Obstructive Pulmonary Disease CV/HEM Hypertension and Myocardial Infarction Date of Service: 08/31/22 Procedure(s): Sestamibi Stress Test Request CONCLUSION: 1. No significant EKG changes with the LexiScan infusion 2. No LexiScan induced chest pain or cardiac arrhythmia 3. Normal blood pressure and heart rate response 4. Sestamibi/sestamibi perfusion scan pending; see separate report. Electronically Signed On 09-01-2022 12:44:21 CDT by Ajay Echeverria M.D Date of Service: 09/01/22 Procedure(s): NM nadya perf SPECT r/s* [id number] ?IMPRESSIONS ?1.? Myocardial perfusion imaging revealing areas of persistent decreased tracer ?uptake in the inferior, anterior, apical and inferoseptal regions with some ?small areas of reversibility, suggesting myocardial scarring in the ?distribution of the right coronary artery and left anterior descending artery ?with? small areas of tania-infarction ischemia with the supine imaging.? However ?the prone imaging the extent of ischemia appears to be very small . ?2.? Normal LV ejection fraction of 59% ?3.? LV wall motion analysis revealing no gross wall motion abnormalities. ?4.? Mildly dilated LV cavity with an end-systolic volume of 63 ml. ?No similar previous studies are available for comparison. ?Clinical correlation is recommended ?Dr Ajay Echeverria MD FACC? ?(Electronically Signed) Date of Service: 08/31/22 Procedure(s): CV. echo wo/w contrast [id number] ?CONCLUSIONS ?1-Normal left ventricular size, systolic function and wall ?thickness, with no regional wall motion abnormalities.? Left ?ventricular ejection fraction is estimated at 60 %. Grade I/IV ?diastolic dysfunction (abnormal relaxation filling pattern), ?normal to mildly elevated filling pressures.? ?2-Moderate aortic valve calcification. No aortic valve stenosis.?Trace aortic valve regurgitation. ? ?3-No significant valve abnormalities. ?4-There is no pericardial effusion. ?5-Right atrial pressure is around 5 mm of mercury. ?Meri Powers MD? ?(Electronically Signed) Anesthetic Plan ASA status: 3 Anesthesia: General Medications/Allergies Home Medications Medication Instructions Recorded Confirmed Last Taken Type aspirin 81 mg tablet,delayed 81 mg PO DAILY 06/24/19 12/11/22 12/04/22 History release (Adult Aspirin Regimen) Lactobacillus acidophilus 1,000 mmu cells PO DAILY 09/12/22 12/11/22 12/11/22 History (Acidophilus capsule) calcium citrate 200 mg (950 mg) 200 mg PO DAILY 09/12/22 12/11/22 12/11/22 History tablet alprazolam 0.25 mg tablet 0.125 mg PO DAILY 10/04/22 12/11/22 12/11/22 History amlodipine 5 mg tablet 5 mg PO BID 10/23/22 12/11/22 12/12/22 08:00 History metoprolol tartrate 25 mg tablet 25 mg PO BID 10/23/22 12/11/22 12/12/22 08:00 History albuterol sulfate 90 mcg/actuation See Rx Instructions .Route 11/01/22 12/12/22 Unknown Rx aerosol inhaler (Ventolin HFA) .COMPLEX #54 grams umeclidinium 62.5 mcg/actuation See Rx Instructions .Route 11/16/22 12/11/22 12/12/22 08:00 Rx blister powder for inhalation .COMPLEX #30 ea (Incruse Ellipta) budesonide-formoterol HFA 160 See Rx Instructions .Route 11/21/22 12/11/22 12/12/22 08:00 Rx mcg-4.5 mcg/actuation aerosol .COMPLEX #10.2 grams inhaler levothyroxine 100 mcg capsule 100 mcg PO DAILY 11/29/22 12/11/22 12/12/22 08:00 History simvastatin 40 mg tablet See Rx Instructions .Route 12/06/22 12/11/22 12/11/22 Rx .COMPLEX #90 tabs Allergies Allergy/AdvReac Type Severity Reaction Status Date / Time No Known Allergies Allergy Verified 11/29/22 07:55 [facility]LY [facility] Anesthesia Medical History COPD (chronic obstructive pulmonary disease) Dental caries Enrolled in chronic care management Hypercholesterolemia Hypertension Infectious gastroenteritis and colitis Myocardial infarction Surgical History H/O colonoscopy 07/18/16 H/O eye surgery as a child from crossed eyes H/O: hysterectomy 1980 partial History of coronary artery stent placement S/P cataract surgery Family History Father Cancer lung Mother Thyroid disease Denies family history of Anesthesia complication Bleeding disorder Social History Smoking and tobacco status: former smoker (1999) Alcohol intake: never Substance/Drug Use: never Marital status: Single Current occupational status: retired Data Anesthesia Cardiac Studies: Echocardiogram 09/26/22 Sestamibi Stress Test (Cardiology) 09/26/22
[2022-12-12] MEDS: sodium chloride 0.9% 1,000 ML 30 ML IV (10:35)
--- NOTE | 2022-12-12 11:17 | ECG_ITS ---
[facility] Test Date: 2022-12-12 Pat Name: Grecia Nick Department: Room: Gender: Female Fruit Tester: : 1950 Requested By: Sudha Wray Order Number: [id number] Octavio MD: Ajay Echeverria M.D. Measurements Intervals [place] Rate: 75 P: 51 HI: 188 QRS: -49 QRSD: 77 T: -1 QT: 373 QTc: 418 Interpretive Statements SINUS RHYTHM INFERIOR MYOCARDIAL INFARCTION , PROBABLY OLD [40+ ms Q WAVE AND/OR ST/T ABNORMALITY IN II/aVF] Compared to ECG 12/03/2016 22:38:02 Myocardial infarct finding now present Electronically Signed On 12-14-2022 12:25:24 CDT by Ajay Echeverria M.D. [id number]
--- NOTE | 2022-12-12 12:16 | W.PM.OPSUD ---
Surgery/Procedure H&P Update DATE OF PROCEDURE: December 12, 2022 DATE H&P PERFORMED: 11/24/22 H&P UPDATE INFORMATION: I have reviewed H&P completed within last 30 days, I have examined patient prior to procedure and No changes to prior documentation PREOP DIAGNOSIS: Right lobe thyroid cancer PLANNED PROCEDURE: Operation Date: 12/12/22 12:00 Proposed Procedures p Hemithyroidectomy [id number],C73(Left) - Stewart Rosen MD s Total Thyroidectomy(Left) - Stewart Rosen MD
[2022-12-12] MEDS: ceFAZolin 2,000 MG in sodium chloride 0.9% (plus) 50 ML 100 MG IV ×2 (12:31→21:24)
[2022-12-12] MEDS: lidocaine-epi 1% 20 mL INJ INJECTION (13:58)
[2022-12-12] MEDS: ceFAZolin 1,000 mg SDV 1000 MG IRRIGATION (13:58)
[2022-12-12] MEDS: neomycin-poly-bacitracin oint 28 gm 28 APPLIC (13:58)
[2022-12-12] MEDS: thrombin 5,000 unit SDV 5000 UNIT XX (13:59)
--- NOTE | 2022-12-12 14:38 | P.OP_ITS ---
Operative Report Date of procedure: December 12, 2022 Pre-op diagnosis: Preop Diagnosis Right lobe thyroid cancer Post-op diagnosis: same Post-op findings: - Healing post surgical changes of the anterior neck - Left recurrent laryngeal nerve identified and left intact - Parathyroid glands X 2 identified and left in-situ - O/W normal left tracheoesophageal groove/anterior neck exam Procedure done: Left wilman/completion thyroidectomy Implants: None Specimens removed/disposition: Left thyroid lobe Pathology: Left thyroid lobe Surgeon: Stewart Rosen Greenhouse Laborer: Magdy Ng Anesthesia: General Estimated blood loss (mL): 5 IV fluids (mL): 800 Complications: None Findings: - Healing post surgical changes of the neck - Left recurrent laryngeal nerve intact visually and electrically - Parathyroids X 2 identified and left in-situ - O/W normal anterior neck exam Condition: stable Disposition: ICU Brief History: 72 yo wf with a h/o right thyroid lobe oncocytic carcinoma who presents for completion thyroidectomy. Procedure: The patient was identified in the preop hold area and was placed on the OR table in the supine position. The patient was placed under general endotracheal anesthesia with an ET tube with a Neurvana electrode in place - position of the elctrode was ensured with a [place] scope. The anterior neck was injected with local anesthesia and the patient was then prepped and draped in the usual sterile fashion. The incision was then made with a #15 blade, and the dissection proceeded into the deeper tissues of the neck with blunt dissection and the harmonic scalpel. The left thyroid lobe was identified and then dissected free from the surrounding tissues using the Neurvana dissecting hemostat. As the dissection proceed, the left thyroid lobe was rotated medially. The vagus nerve was stimulated with the dissecting hemostat in the carotid sheath and the monitoring circuit was found to be intact. At this point, as the left lobe was rotated medially, the upper and lower parathyroid glands were identified preserved in-situ. The recurrent laryngeal nerve was identified both visually and electrically and was preserved in place. While protecting the recurrent laryngeal nerve, the dissection of the left thyroid lobe continued with blunt dissection and bipolar cautery until the lobe was removed from the patient. The left thyroid lobe was inspected under 5X loupe magnification. At this point, hemostasis was achieved with bipolar cautery. Gelfoam soaked in thrombin and Decadron were then placed in the left tracheoesophageal groove over the left recurrent laryngeal nerve. A drain was then placed in the wound, and the wound was closed in layers with 4-0 Monocryl and 5-0 Monocryl. Final closure was accomplished with Dermabond and steri- strips. The procedure was then terminated and control of the patient was returned to anesthesia where she underwent an uneventful reversal of anesthesia and extubation. The patient was then taken to the ICU in stable condition. There were no operative or anesthetic complications.
--- NOTE | 2022-12-12 14:51 | ANE.PACU2 ---
Inpatient post-anesthesia follow up: Airway intact: Yes Vital signs: Temperature 97.6 F Pulse Rate 74 Respiratory Rate 16 Blood Pressure 166/89 Pulse Oximetry 95 Oxygen Delivery Me thod Room Air Oxygen Flow Rate Fraction of Inspir ed Oxygen Hydration adequate: Yes Nausea and vomiting: No Pain level: 1 Mental status: Baseline
--- NOTE | 2022-12-12 16:00 | ANE.PACU2 ---
Inpatient post-anesthesia follow up: Airway intact: Yes Vital signs: Temperature 98.4 F Pulse Rate 83 Respiratory Rate 22 Blood Pressure 154/80 Pulse Oximetry 95 Oxygen Delivery Me thod Room Air Oxygen Flow Rate Fraction of Inspir ed Oxygen Hydration adequate: Yes Nausea and vomiting: No Pain level: 1 Mental status: Baseline
[2022-12-12 16:05] LABS: Calcium 8.7 mg/dL (8.5-10.5)
[2022-12-12 16:11] LABS: Parathyroid Hormone 44.1 pg/mL (15-65)
[2022-12-12] MEDS: lactated ringers 1,000 ML 100 ML IV (16:30)
[2022-12-12] MEDS: famotidine 20 mg/2 mL INJ IVP (16:31)
--- NOTE | 2022-12-12 18:04 | P.PN_ITS ---
Subjective Subjective: 72 yo wf who is night of surgery s/p left wilman/completion thyroidectomy. The patient reports that she is doing well. Her voice is unchanged from preop and she is taking po well. She has no other c/o. Medications: Reviewed: Yes Vitals/I&O/Wt Last Vital Signs Temp 97.7 F 12/12/22 14:37 Pulse 102 H 12/12/22 17:45 Resp 15 12/12/22 17:45 BP 138/83 12/12/22 17:45 Pulse Ox 95 12/12/22 16:30 O2 Del Method Room Air 12/12/22 10:24 12/12/22 12/12/22 12/12/22 06:59 14:59 22:59 Intake Total 50 / 50 60 / 110 Output Total 400 / 400 Balance 50 / 50 -340 / -290 Weight last 48 hrs Weight 53.977 kg Physical Exam Const: COMMON NORMALS: no acute distress, average body habitus and patient oriented x3 HENMT: COMMON NORMALS: normocephalic, atraumatic and Normal external nose present HEAD & SCALP: normocephalic and atraumatic FACE & SINUS: normal facial exam and face symmetric NOSE: Normal external nose present Eye: COMMON NORMALS: EOMs intact bilaterally, conjunctivae normal and no scleral icterus CONJUNCTIVA: Yes conjunctivae normal Neck/C-Spine: COMMON NORMALS: no lymphadenopathy and supple GENERAL: Yes ot her (Incision without swelling or redness.) Resp: COMMON NORMALS: normal respiratory effort, No retractions and No use of accessory muscles Neuro: COMMON NORMALS: patient oriented x3 Urinary Catheter Management: Tapia: Cath Placed During This Visit: yes, but has since been removed by the nurse Urinary Catheter Date of Insertion: 12/12/22 Urinary Catheter Time of Insertion: 13:54 Date Urinary Catheter Removed: 12/12/22 Time Urinary Catheter Discontinued: 14:17 Data Other Labs: Parathyroid Hormone Level (Immediate post op): 44 ng/mL A&P Assessment and plan (1) S/P thyroidectomy: Impression: Night of surgery s/p left wilman/completion thyroidectomy doing well with normal PTH level post op Plan: - Overnight observation - Anticipate d/c in the am - Advance to regular diet - Resume preop meds - Pain control - Continue closed suction drainage Attestations Medical Necessity Statement*: The patient requires overnight observation of her airway Coding Level of Care Code Acute Code for Chg Fwd Diagnoses S/P thyroidectomy E89.0
[2022-12-12] MEDS: amlodipine 5 mg Tablet PO (18:08)
[2022-12-12] MEDS: metoprolol tartrate 25 mg Tablet PO (18:08)
[2022-12-12] MEDS: docusate sodium 100 mg Capsule PO (18:08)
[2022-12-12] MEDS: budesonide 0.5 mg/2 mL Neb INHALATION (20:07)
[2022-12-13] VITALS (15 sets, daily range): BP systolic 112–155; BP diastolic 61–96; PULSE 78–112; RESP 13–23; TEMP 36.8–37.1; O2SAT 91–97
[2022-12-13] MEDS: lactated ringers 1,000 ML 100 ML IV (02:38)
[2022-12-13] MEDS: famotidine 20 mg/2 mL INJ IVP (02:48)
[2022-12-13 03:21] LABS: Basophils % 0.1 %; Hematocrit 39.1 % (37.0-47.0); Hemoglobin 12.3 g/dL (11.5-15.3); Lymphocytes % 10.1 %; Mean Corpuscular HGB Conc 31.5 g/dL (30.0-36.0); Mean Corpuscular Hemoglobin 28.1 pg (28.0-34.0); Mean Corpuscular Volume 89.3 fl (81-99); Mean Platelet Volume 9.6 fL (7.4-10.4); Monocytes # 0.4 10^3/uL (0.2-0.9); Monocytes % 4.5 %; Neutrophils # 8.39 10^3/uL (1.8-7.7); Nucleated Red Blood Cells % 0 %; Platelet Count 270 10^3/cmm (130-400); Red Blood Count 4.38 10^6/uL (4.1-5.3); Red Cell Distribution Width 12.6 % (12.1-15.1); White Blood Count 9.9 10^3/uL (4.0-10.0)
[2022-12-13 03:40] LABS: Blood Urea Nitrogen 21 mg/dL (8-23); Calcium 8.7 mg/dL (8.5-10.5); Carbon Dioxide 23 mmol/L (22-29); Chloride 100 mmol/L (98-107); Glucose 214 mg/dL (65-115); Osmolality Calculated 291 mOsm/kg (285-295); Sodium 136 mmol/L (136-145)
[2022-12-13 03:42] LABS: Anion Gap 17.2 (5-19); Potassium 4.2 mmol/L (3.5-5.1)
[2022-12-13] MEDS: ceFAZolin 2,000 MG in sodium chloride 0.9% (plus) 50 ML 100 MG IV (04:32)
--- NOTE | 2022-12-13 05:01 | P.PN_ITS ---
Subjective Subjective: 72 yo wf who is POD #1 s/p left wilman/completion thyroidectomy. The patient is without c/o - she reports minimal pain, is swollowing well, and has been able to void well. There are no other c/o. Medications: Reviewed: Yes Vitals/I&O/Wt Last Vital Signs Temp 98.3 F 12/13/22 00:30 Pulse 90 12/13/22 04:00 Resp 18 12/13/22 04:00 BP 134/73 12/13/22 04:00 Pulse Ox 93 12/13/22 04:00 O2 Del Method Room Air 12/13/22 04:00 12/12/22 12/12/22 12/13/22 14:59 22:59 06:59 Intake Total 50 / 50 1020 / 1070 750 / 1820 Output Total 750 / 750 300 / 1050 Balance 50 / 50 270 / 320 450 / 770 Weight last 48 hrs Weight 53.977 kg Physical Exam Const: COMMON NORMALS: no acute distress, average body habitus and patient o riented x3 HENMT: COMMON NORMALS: normocephalic, atraumatic and Normal external nose present HEAD & SCALP: normocephalic and atraumatic FACE & SINUS: normal facial exam NOSE: Normal external nose present Eye: COMMON NORMALS: EOMs intact bilaterally Neck/C-Spine: COMMON NORMALS: full ROM, no lymphadenopathy and supple GENERAL: Yes trachea midline and Yes other (The wound is intact without swelling.) Resp: COMMON NORMALS: normal respiratory effort, No retractions, No use of accessory muscles and clear to auscultation bilaterally AUSCULTATION: clear to auscultation bilaterally Cardio: COMMON NORMALS: regular rate, regular rhythm and No murmurs present (Cardio) RATE: regular rate RHYTHM: regular rhythm GI: COMMON NORMALS: Normal to inspection, nondistended, normoactive bowel sounds present Neuro: COMMON NORMALS: patient oriented x3 Urinary Catheter Management: Tapia: Cath Placed During This Visit: yes, but has since been removed by the nurse Urinary Catheter Date of Insertion: 12/12/22 Urinary Catheter Time of Insertion: 13:54 Date Urinary Catheter Removed: 12/12/22 Time Urinary Catheter Discontinued: 14:17 Data 12/13/22 02:50 12/13/22 02:50 A&P Assessment and plan (1) S/P thyroidectomy: Impression: POD #1 s/p completion thyroidectomy doing well with normal post op PTH level Plan: - Resume all preop medications - Pt declines pain meds - D/C to home - F/U in Dr. Rosen's office on 12/18/22 - Contact Dr. Rosen for any problems - Empty and record drain output daily Attestations Medical Necessity Statement*: The patient required overnight observation of her airway Coding Level of Care Code Acute Code for Chg Fwd Diagnoses S/P thyroidectomy E89.0
[2022-12-13] MEDS: budesonide 0.5 mg/2 mL Neb INHALATION (07:30)
[2022-12-13] MEDS: docusate sodium 100 mg Capsule PO (08:06)
[2022-12-13] MEDS: atorvastatin 40 mg Tablet 20 MG PO (08:06)
[2022-12-13] MEDS: levothyroxine 100 mcg Tablet PO (08:06)
[2022-12-13] MEDS: amlodipine 5 mg Tablet PO (08:06)
[2022-12-13] MEDS: metoprolol tartrate 25 mg Tablet PO (08:06)
--- NOTE | 2022-12-13 08:46 | PC.NURSE ---
Patient states she does not have a ride home till 1030. Will make all reasonable attempts to accommodate patient and transportation. Patient expresses anxiety about discharge and transportation arrangements. Patients daughter is set to arrive at 1030.
--- NOTE | 2022-12-13 10:53 | PC.NURSE ---
Extensive education given to patient with daughter at bedside,verbal, written, and demonstrated education included incision care, drain management; as well as activity, bathing, and follow up appointments. Patient also instructed on S/S to call provider and when to call 911. IV removed with no complications. Patient and family had no questions at discharge. Patient stated she did not take home med, alprazolam. Patient instructed to continue with providers orders on all medications and to inquire at next appointment about home med list. Patient discharged to personal vehicle with daughter as primary driver/refuse collector at 1158. All belongings with patient.
== END 2022-12-13 10:58 | disposition home or self-care (01) ==
LOC: ICU 14:56
PROVIDERS: Admitting Provider Specialist; PCP Nurse Practitioner Family; Visit Provider Specialist
PROC: (CPT 60260; principal; 2022-12-12 12:00)
DX: C73 Malignant neoplasm of thyroid gland (principal); J44.9 Chronic obstructive pulmonary disease, unspecified; I10 Essential (primary) hypertension; Z87.891 Personal history of nicotine dependence; Z79.82 Long term (current) use of aspirin
CPT/HCPCS: 60260; 36415; 51702; 80048; 82310; 83970; 85025; 88307; 93005; 94640; 96374; 96376; G0378; J0690; J1100; J2370; J2405; J2704; J3010; J3490; J7030; J7120; J7626

== ENCOUNTER → 2022-12-21 13:10 | Outpatient (BNVA) | payer MEDICARE, MEDICAID, SELFPAY | PROVIDERS: PCP Nurse Practitioner Family; Visit Provider Internal Medicine Pulmonary Disease | DX: J44.9 Chronic obstructive pulmonary disease, unspecified (principal); R91.8 Other nonspecific abnormal finding of lung field; Z87.891 Personal history of nicotine dependence | CPT/HCPCS: 99204 ==

== ENCOUNTER 2022-12-27 07:18 | Outpatient (CLI) | payer MEDICARE, MEDICAID, SELFPAY ==
--- NOTE | 2022-12-27 07:30 | CTR_ITS ---
PROCEDURE INFORMATION: Exam: CT Chest Without Contrast; Diagnostic Exam date and time: 12/27/2022 7:34 AM Age: 72 years old Clinical indication: Condition or disease; Lung condition and disease; Copd; Complications not specified; Prior surgery; Surgery date: 6+ months; Surgery type: Thyroid, heart stents.No history of trauma or recent surgery is provided. History of thyroid neoplasm is provided. TECHNIQUE: Imaging protocol: Diagnostic computed tomography of the chest without contrast. 220image(s) are provided. Radiation optimization: All CT scans at this facility use at least one of these dose optimization techniques: automated exposure control; mA and/or kV adjustment per patient size (includes targeted exams where dose is matched to clinical indication); or iterative reconstruction. Other technique: Axial images are available with sagittal and coronal reconstruction views. Automated dose exposure control is utilized. The DLP is 156.80. REPORTING DATA: Count of CT and Cardiac NM exams in prior 12 months: This patient has received 3 known CTs and 0 known cardiac nuclear medicine studies in the 12 months prior to the current study. COMPARISON: CT lung screening 04002 01/30/2022 11:43 AM. PET-CT with no report currently available of 02/11/2022. RADIATION DOSE METRICS: Total DLP (mGy-cm): 156.8 FINDINGS: Thyroid: There are postsurgical thyroid fossa level changes present. Trachea: The central airways are patent. Lungs: There is some minimal parenchymal bleb averaging as well as slight fissure thickening similar. There is linear subsegmental atelectasis versus post inflammatory scarring demonstrated. There are some centrilobular areas of nodularity as well as some multifocal ground-glass attenuation of the parenchyma. This demonstrates similar appearance and distribution overall for example central foci of the right upper lobe as well as the largest and most pronounced of the left lower lobe near the segmental divisions. The overall greatest dimension is approximately 5.7 x 2.5 cm similar overall. There are some air bronchograms present as well as bandlike scarring also similar. There is similar ground-glass nodularity also present for example including lateral basal left lower lobe series 5, image 42 measuring approximately 4 x 6 mm. There is a calcified granuloma present similar overall of the right apex. Fleischner Society follow up recommendations for incidental nodules are not indicated. Follow up per the patient's medical condition. Pleural spaces: No interval pneumothorax or pleural effusion is appreciated. Heart: No significant pericardial fluid collection is appreciated. Coronary arteries: There are coronary arterial calcifications present. Lymph nodes: There are similar subcentimeter predominant mediastinal and hilar lymph nodes overall present. Vasculature: There is similar overall aortic appearance with smooth walled ectasia for example ascending aorta measuring 4.1 cm and descending thoracic 2.6 cm. Stomach and bowel: There is a small sliding-type hiatal hernia demonstrated with slight gastroesophageal fold thickening. Intraperitoneal space: There is a similar otherwise interval appearance of the included intraperitoneal space, upper abdominal structures. Bones/joints: Osseous alignment is maintained.No interval displaced fracture or dislocation is appreciated. There are some chronic appearing rib deformities present. There is some thoracic spondylosis along with some osseous partial fusion appearance of the lower thoracic spine similar overall. Soft tissues: No radiopaque foreign body or subcutaneous emphysema is appreciated. There is some subtle asymmetry of the breast soft tissues overall. Consider mammography. Other findings: There is some motion artifact present. No significant interval changes are appreciated. CT/CT chest wo con [id number] IMPRESSION: There is a stable CT chest appearance overall as compared to the previous study with some multiple nodular granulomatous and ground-glass related foci. No interval progression or abnormal mediastinal or hilar lymph node enlargement is appreciated. This therefore could be seen with processes including chronic postinflammatory as well as interstitial processes.
== END 2022-12-27 07:19 | disposition home or self-care (01) ==
LOC: RAD 07:22
PROVIDERS: PCP Nurse Practitioner Family; Visit Provider Internal Medicine Pulmonary Disease
DX: J44.9 Chronic obstructive pulmonary disease, unspecified (principal); R91.8 Other nonspecific abnormal finding of lung field; Z95.5 Presence of coronary angioplasty implant and graft; Z85.850 Personal history of malignant neoplasm of thyroid
CPT/HCPCS: 71250

== ENCOUNTER 2023-01-04 06:58 | Outpatient (CLI) | payer MEDICARE, MEDICAID, SELFPAY ==
[2023-01-04 07:25] VITALS: PULSE 63; RESP 18; O2SAT 100
[2023-01-04] MEDS: albuterol 2.5 mg/3 mL Neb INHALATION (07:25)
[2023-01-04 07:30] VITALS: PULSE 67
== END 2023-01-04 06:59 | disposition home or self-care (01) ==
PROVIDERS: PCP Nurse Practitioner Family; Visit Provider Internal Medicine Pulmonary Disease
DX: R06.02 Shortness of breath (principal); J44.9 Chronic obstructive pulmonary disease, unspecified
CPT/HCPCS: 94060; 94618; 94726; 94729; J7613

== ENCOUNTER → 2023-01-25 14:57 | Outpatient (BNVA) | payer MEDICARE, MEDICAID, SELFPAY | PROVIDERS: PCP Nurse Practitioner Family; Referring Provider Specialist; Visit Provider Internal Medicine | DX: E04.1 Nontoxic single thyroid nodule (principal); C73 Malignant neoplasm of thyroid gland; E03.9 Hypothyroidism, unspecified; Z79.890 Hormone replacement therapy | CPT/HCPCS: 36415; 82310; 83970; 84432; 84439; 84443; 86800; 99204 ==

== ENCOUNTER → 2023-02-01 07:57 | Outpatient (BNVA) | payer MEDICARE, MEDICAID, SELFPAY | PROVIDERS: PCP Nurse Practitioner Family; Visit Provider Internal Medicine Pulmonary Disease | DX: J44.9 Chronic obstructive pulmonary disease, unspecified (principal); R91.8 Other nonspecific abnormal finding of lung field; Z87.891 Personal history of nicotine dependence | CPT/HCPCS: 99214 ==

== ENCOUNTER 2023-02-20 07:52 | Day surgery (SDC) | payer MEDICARE, MEDICAID, SELFPAY ==
[2023-02-16 11:15] VITALS: BMI 21.2
[2023-02-20] VITALS (11 sets, daily range): BP systolic 110–161; BP diastolic 53–89; PULSE 70–94; RESP 14–18; TEMP 36.1–36.5; O2SAT 92–99
--- NOTE | 2023-02-20 07:54 | CT_ITS ---
WS: [id number] CT CHEST TECHNIQUE: Noncontrast CT of the chest for preoperative/intraoperative planning purposes CLINICAL INFORMATION: For bronchoscopy and biopsies of left lower lobe GGO COMPARISON: None. DLP: 211.[address] scans at [facility] use at least one of these dose optimization techniques: automated e xposure control; mA and/or kV adjustment per patient size (includes targeted exams where dose is matc hed to clinical indication); or iterative reconstruction. FINDINGS: Hazy groundglass opacity in the LEFT lower lobe medially is unchanged. Subsegmental atelect asis LEFT lower lobe. A few groundglass opacities in the RIGHT upper lobe are unchanged in appearance . Noncalcified nodule RIGHT lower lobe measuring 3 mm. Calcified granuloma RIGHT lung apex. Stable noncalcified nodule LEFT upper lobe posterior medially measuring 3.7 mm. Few additional subcen timeter noncalcified nodules in the LEFT upper lobe unchanged. Small hazy subpleural opacity LEFT low er lobe measuring 6 mm is stable. Aneurysmal ascending thoracic aorta measuring 3.9 cm unchanged. Aortic calcification. Coronary calcif ication. Adrenal glands are normal. Splenic artery calcification. Tiny esophageal hernia. IMPRESSION: 1. No significant changes 12/27/2022. 2. Images obtained for preoperative/intraoperative planning and navigational purposes.
[2023-02-20] MEDS: sodium chloride 0.9% 1,000 ML 30 ML IV (08:27)
--- NOTE | 2023-02-20 08:36 | ANES.PREANE2 ---
Pre-Anesthetic Assessment Height/Weight: Height 1.6 m Weight 54.431 kg Temp Pulse Resp BP Pulse Ox O2 Del Method 97 F L 70 18 161/89 98 Room Air 02/20/23 08:16 02/20/23 08:16 02/20/23 08:16 02/20/23 08:16 02/20/23 08:16 02/20/23 08:16 Operation Date: 02/20/23 09:15 Proposed Procedures p ION, EBUS, 03263, 79808, 19018, 33408, 77751, 72370, 81508, 40910, 36102, 88566, 86971, 02985, 03453, 72581,R91.8(Not Applicable) - Rubens Ballesteros MD s Ebus(Not Applicable) - Rubens KaufmanrMD Familial anesthetic complications: none Was Beta Millicent taken within 24 hours: Yes Was Clonidine taken within 24 hours: N/A Last intake: Intake Last Liquid Date 02/19/23 Last Liquid Time 21:00 Last Solid Date 02/19/23 Last Solid Time 17:30 Social No alcohol and No tobacco Exam alert, oriented x 3, clear to auscultation bilaterally and regular rate & rhythm Airway Mallampati: Class II Dentition: false Pulmonary Chronic Obstructive Pulmonary Disease CV/HEM Coronary Artery Disease (stent), Hypertension and Myocardial Infarction Metabolic Hyperlipidemia and Thyroid Disease Anesthetic Plan ASA status: 3 Anesthesia: General Risk of > 500 ml blood loss (7ml/kg in children): No Medications/Allergies Home Medications Medication Instructions Recorded Confirmed Last Taken Type aspirin 81 mg tablet,delayed 81 mg PO QPM 06/24/19 02/16/23 02/15/23 History release (Adult Aspirin Regimen) Lactobacillus acidophilus 1,000 mmu cells PO DAILY 09/12/22 02/16/23 02/20/23 History (Acidophilus capsule) calcium citrate 200 mg (950 mg) 200 mg PO DAILY 09/12/22 02/16/23 02/19/23 History tablet levothyroxine 100 mcg capsule 100 mcg PO DAILY 11/29/22 02/16/23 02/20/23 History albuterol sulfate 90 mcg/actuation 2 puff inhalation PRN PRN 02/16/23 02/16/23 02/16/23 History aerosol inhaler (Ventolin HFA) Shortness Of Breath amlodipine 5 mg tablet 5 mg PO BID 02/16/23 02/16/23 02/20/23 History budesonide-formoterol HFA 160 2 puff inhalation BID 02/16/23 02/16/23 02/20/23 History mcg-4.5 mcg/actuation aerosol inhaler (Symbicort) metoprolol tartrate 25 mg tablet 25 mg PO BID 02/16/23 02/16/23 02/20/23 History simvastatin 40 mg tablet 40 mg PO QPM 02/16/23 02/16/23 02/19/23 History umeclidinium 62.5 mcg/actuation 1 inh inhalation DAILY 02/16/23 02/16/23 02/20/23 History blister powder for inhalation (Incruse Ellipta) Allergies Allergy/AdvReac Type Severity Reaction Status Date / Time No Known Allergies Allergy Verified 02/16/23 10:31 Current Medications Generic Name Dose Route Start Last Admin Trade Name Freq PRN Reason Stop Dose Admin Sodium Chloride 1,000 mls @ 30 mls/hr 02/20/23 08:00 02/20/23 08:27 Sodium Chloride 0.9% IV 02/21/23 07:59 30 mls/hr .Q24H JOYCE Administration PFSH Anesthesia Medical History COPD (chronic obstructive pulmonary disease) Dental caries Enrolled in chronic care management Hypercholesterolemia Hypertension Infectious gastroenteritis and colitis Myocardial infarction Surgical History H/O colonoscopy 07/18/16 H/O eye surgery as a child from crossed eyes H/O: hysterectomy 1980 partial History of coronary artery stent placement S/P cataract surgery Family History Father Cancer lung Mother Thyroid disease Denies family history of Anesthesia complication Bleeding disorder Social History Quit status (tobacco): has quit using tobacco Year quit tobacco: 2017 Former quit date comment: 1 ppd X 55 years Alcohol intake: never Substance/Drug Use: never Marital status: Single Current occupational status: retired Data Anesthesia Cardiac Studies: Echocardiogram 09/26/22 Sestamibi Stress Test (Cardiology) 09/26/22
--- NOTE | 2023-02-20 09:33 | W.PM.OPSUD ---
Surgery/Procedure H&P Update DATE OF PROCEDURE: February 20, 2023 DATE H&P PERFORMED: 02/01/23 H&P UPDATE INFORMATION: I have reviewed H&P completed within last 30 days, I have examined patient prior to procedure and No changes to prior documentation PREOP DIAGNOSIS: suspected malignancy PRIMARY INDICATION FOR PROCEDURE: to rule out malignancy PLANNED PROCEDURE: Operation Date: 02/20/23 09:15 Proposed Procedures p ION, EBUS, 42745, 28381, 96923, 32494, 57064, 89358, 27398, 67313, 20446, 11075, 16369, 13960, 49147, 53645,R91.8(Not Applicable) - Rubens Ballesteros MD s Ebus(Not Applicable) - Rubens Ballesteros MD
--- NOTE | 2023-02-20 09:54 | SC_ITS ---
WS: [id number] C-arm fluoroscopy for left lung bronchoscopy, 02/20/2023 Clinical Data: ion Comparison: CT chest, 12/27/2022 Findings: Dr. Ballesteros performed a left lower lobe bronchoscopy. Impression: Left lower lobe bronchoscopy.
[2023-02-20] MEDS: lidocaine 1% INJ 10 mL (per mL) XX (11:11)
[2023-02-20 12:11] LABS: Cyto Order Verification Order Verified
[2023-02-20 12:20] LABS: Apprearance, Bronch Wash Bloody (CLEAR); Bronch Source LEFT LOWER LOBE; Color, Bronc Wash Red; PATH Referral Yes
--- NOTE | 2023-02-20 12:34 | XRR_ITS ---
PROCEDURE INFORMATION: Exam: XR Chest Exam date and time: 02/20/2023 12:45 PM Age: 72 years old Clinical indication: Device placement; Other: Post ion; Patient HX: HX of thyroid cancer TECHNIQUE: Imaging protocol: Radiologic exam of the chest. Views: 1 view. COMPARISON: CT chest ION (PULM ONLY) [id number] 02/20/2023 8:07 AM FINDINGS: Lungs: Unremarkable. No consolidation. Pleural spaces: Unremarkable. No pleural effusion. No pneumothorax. Heart/Mediastinum: Unremarkable. No cardiomegaly. Bones/joints: Unremarkable for age. XR/XR chest 1V portable [id number] IMPRESSION: Negative chest exam.
[2023-02-20 12:45] LABS: Total Cells Counted Bronch 100
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
[2023-02-20 15:31] LABS: Cyto Order Verification Order Verified
== END 2023-02-20 14:07 | disposition home or self-care (01) ==
PROVIDERS: PCP Nurse Practitioner Family; Visit Provider Internal Medicine Pulmonary Disease
PROC: 0BJ08ZZ Inspection of Tracheobronchial Tree, Via Natural or Artificial Opening Endoscopic (ICD-10-PCS; CPT 31622; principal; 2023-02-20 09:15)
PROC: BB4BZZZ Ultrasonography of Pleura (ICD-10-PCS; 2023-02-20 09:15)
DX: R91.8 Other nonspecific abnormal finding of lung field (principal); I25.10 Atherosclerotic heart disease of native coronary artery without angina pectoris; Z95.5 Presence of coronary angioplasty implant and graft; I10 Essential (primary) hypertension; E78.00 Pure hypercholesterolemia, unspecified; J44.9 Chronic obstructive pulmonary disease, unspecified; Z87.891 Personal history of nicotine dependence; I25.2 Old myocardial infarction; Z79.82 Long term (current) use of aspirin
CPT/HCPCS: 31623; 31624; 31627; 31628; 31629; 31645; 31652; 31654; 71045; 71250; 76000; 80503; 87070; 87205; 88112; 88305; 88342; 89050; J0330; J1100; J2405; J2704; J3010; J3490; J7030

== ENCOUNTER 2023-03-22 09:54 | Outpatient (CLI) | payer MEDICARE, MEDICAID, SELFPAY ==
--- NOTE | 2023-03-22 09:58 | MM_ITS ---
WS: [id number] BILATERAL SCREENING DIGITAL TOMOSYNTHESIS MAMMOGRAM WITH CAD HISTORY: Z12.39 - Encounter for other screening for malignant neop... COMPARISON: 02/23/2022 and 05/20/2015 Bilateral CC and MLO views with tomosynthesis and synthetic mammography submitted. Computer aided det ection analyzed. Breast composition: The breasts are heterogeneously dense, which may obscure small masses. No suspici ous masses, microcalcifications or architectural distortion. Benign calcifications in each breast. IMPRESSION: MM/[place] [address] BI-RADS: 2-Benign FOLLOW UP: 1 Year Follow-up
== END 2023-03-22 09:55 | disposition home or self-care (01) ==
LOC: RAD 09:55
PROVIDERS: PCP Nurse Practitioner Family; Visit Provider Nurse Practitioner Family
DX: Z12.31 Encounter for screening mammogram for malignant neoplasm of breast (principal)
CPT/HCPCS: 77063; 77067

== ENCOUNTER → 2023-05-28 13:46 | Outpatient (BNVA) | payer MEDICARE, MEDICAID, SELFPAY | PROVIDERS: PCP Nurse Practitioner Family; Visit Provider Specialist | DX: M67.431 Ganglion, right wrist | CPT/HCPCS: 73110; 99204 ==

== ENCOUNTER 2023-06-21 08:36 | Outpatient (CLI) | payer MEDICARE, MEDICAID, SELFPAY ==
--- NOTE | 2023-06-21 09:00 | CT_ITS ---
WS: [id number] CT chest wo con [id number] HISTORY: follow up TECHNIQUE: Axial imaging performed through the thorax. Coronal and sagittal reformats are submitted. All CT scans at [facility] use at least one of these dose optimization techniques: automated exposure control; mA and/or kV adjustment per patient size (includes targeted exams where dose is mat ched to clinical indication); or iterative reconstruction. CONTRAST: None DLP: 225.28 mGy.cm COMPARISON: 01/30/2022, 12/27/2022 and 02/20/2023 Lungs and central airway: Continued bilateral areas of groundglass opacification and subcentimeter pu lmonary nodules. The most concerning area of groundglass attenuation centered near the LEFT hilum ext ending into the LEFT lower lobe measures 5.2 x 3.5 x 3.9 cm. Does not appear to have significantly in creased in size since 01/30/2022. There are additional areas of groundglass attenuation which are much smaller, greatest distribution in the RIGHT upper lobe. There is been no progression of the nodules or groundglass attenuation. Pleura: Normal. No pleural effusion. Heart and pericardium: Mild cardiomegaly. Heavy calcification in the [place] coronary arteries. Mediastinum and sushil: No mediastinum or hilar adenopathy. Vessels: Extensive atherosclerosis aorta. Mild ectasia. Normal size pulmonary artery. Chest wall and lower neck: No soft tissue masses. Upper abdomen: Small hiatal hernia. Mild atrophy upper pole of each kidney. Suprarenal atheroscleroti c calcification continues. No adrenal mass. Osteopenia. Osseous structures: Osteopenia. IMPRESSION: 1. Bilateral focal areas of groundglass attenuation and subcentimeter pulmonary nodules are stable s razia 01/30/2022. 2. Most concerning area of groundglass attenuation is along the LEFT lower lobe at the hilum. Ground glass attenuation measures 5.2 x 3.5 x 3.9 cm without increase in size. Recommend continued assisted evaluation as low-grade neoplasm may appear similar.
== END 2023-06-21 08:37 | disposition home or self-care (01) ==
LOC: RAD 08:36
PROVIDERS: PCP Nurse Practitioner Family; Visit Provider Internal Medicine Pulmonary Disease
DX: R91.8 Other nonspecific abnormal finding of lung field (principal)
CPT/HCPCS: 71250

== ENCOUNTER 2023-06-21 08:37 | Outpatient (CLI) | payer MEDICARE, MEDICAID, SELFPAY ==
[2023-06-21 09:17] LABS: Calcium 9.1 mg/dL (8.5-10.5)
[2023-06-21 09:24] LABS: Parathyroid Hormone 66.1 pg/mL (15-65)
[2023-06-21 10:06] LABS: Free T4 Free Thyroxine 1.94 ng/dL (0.82-1.77); Thyroid Stimulating Hormone 0.06 uIU/mL (0.27-4.20)
[2023-06-25 11:35] LABS: Thyroglobulin AB <1 IU/mL (< or = 1)
[2023-06-27 14:50] LABS: Thyroglobulin Level <0.4 ng/mL
== END 2023-06-21 08:38 | disposition home or self-care (01) ==
LOC: LAB 08:38
PROVIDERS: PCP Nurse Practitioner Family; Visit Provider Internal Medicine
DX: E04.1 Nontoxic single thyroid nodule (principal)
CPT/HCPCS: 36415; 82310; 83970; 84432; 84439; 84443; 86800

== ENCOUNTER → 2023-06-25 11:22 | Outpatient (BNVA) | payer MEDICARE, MEDICAID, SELFPAY | PROVIDERS: PCP Nurse Practitioner Family; Visit Provider Internal Medicine | DX: E04.1 Nontoxic single thyroid nodule (principal); C73 Malignant neoplasm of thyroid gland; E03.9 Hypothyroidism, unspecified; Z79.890 Hormone replacement therapy | CPT/HCPCS: 99214 ==

== ENCOUNTER → 2023-08-06 13:58 | Outpatient (BNVA) | payer MEDICARE, MEDICAID, SELFPAY | PROVIDERS: PCP Nurse Practitioner Family; Visit Provider Internal Medicine Pulmonary Disease | DX: J44.9 Chronic obstructive pulmonary disease, unspecified (principal); R91.8 Other nonspecific abnormal finding of lung field; Z87.891 Personal history of nicotine dependence | CPT/HCPCS: 99214 ==

== ENCOUNTER → 2023-08-14 15:12 | Outpatient (BNVA) | payer MEDICARE, MEDICAID, SELFPAY | PROVIDERS: PCP Nurse Practitioner Family; Visit Provider Nurse Practitioner Family | DX: N39.0 Urinary tract infection, site not specified | CPT/HCPCS: 81000 ==

== ENCOUNTER → 2023-08-20 14:49 | Outpatient (BNVA) | payer MEDICARE, MEDICAID, SELFPAY | PROVIDERS: PCP Nurse Practitioner Family; Visit Provider Nurse Practitioner Family | DX: N39.0 Urinary tract infection, site not specified (principal) | CPT/HCPCS: 81000 ==

== ENCOUNTER 2023-08-24 15:21 | Outpatient (CLI) | payer MEDICARE, MEDICAID, SELFPAY ==
--- NOTE | 2023-08-24 15:30 | US_ITS ---
WS: [id number] THYROID ULTRASOUND HISTORY: thyroid nodules COMPARISON: None available. Patient is status post thyroidectomy. There is no mass at the thyroid bed or adenopathy along the cer vical chains. Thyroidectomy is new since 07/19/2022. IMPRESSION: Status post thyroidectomy. No residual thyroid or adenopathy in the thyroid bed.
== END 2023-08-24 15:22 | disposition home or self-care (01) ==
LOC: RAD 15:21
PROVIDERS: PCP Nurse Practitioner Family; Visit Provider Internal Medicine
DX: C73 Malignant neoplasm of thyroid gland (principal); E03.9 Hypothyroidism, unspecified
CPT/HCPCS: 76536

== ENCOUNTER → 2023-09-04 09:13 | Outpatient (BNVA) | payer MEDICARE, MEDICAID, SELFPAY | PROVIDERS: PCP Nurse Practitioner Family; Visit Provider Nurse Practitioner Family | DX: E03.9 Hypothyroidism, unspecified (principal); Z13.6 Encounter for screening for cardiovascular disorders; C73 Malignant neoplasm of thyroid gland; E04.1 Nontoxic single thyroid nodule | CPT/HCPCS: 80053; 80061; 84443; 85025 ==

== ENCOUNTER 2023-09-18 10:12 | Outpatient (CLI) | payer MEDICARE, MEDICAID, SELFPAY ==
[2023-09-18 10:59] LABS: Free T4 Free Thyroxine 1.98 ng/dL (0.82-1.77)
[2023-09-20 11:30] LABS: Thyroglobulin AB <1 IU/mL (< or = 1)
[2023-09-26 12:34] LABS: Thyroglobulin Level <0.4 ng/mL
== END 2023-09-18 10:13 | disposition home or self-care (01) ==
LOC: LAB 10:12
PROVIDERS: PCP Nurse Practitioner Family; Visit Provider Internal Medicine
DX: E04.1 Nontoxic single thyroid nodule (principal); C73 Malignant neoplasm of thyroid gland; E03.9 Hypothyroidism, unspecified
CPT/HCPCS: 36415; 84432; 84439; 86800

== ENCOUNTER 2023-09-25 10:24 | Outpatient (CLI) | payer MEDICARE, MEDICAID, SELFPAY ==
--- NOTE | 2023-09-25 11:00 | PETR_ITS ---
PROCEDURE INFORMATION: Exam: PET/CT Skull Base to Mid-thigh Exam date and time: 09/25/2023 11:19 AM Age: 73 years old Clinical indication: Abnormal findings; 1. Bilateral focal areas of groundglass attenuation and subcentimeter pulmonary nodules are stable. Since 01/30/2022. 2. Most concerning area of groundglass attenuation is along the left lower lobe at the hilum. Groundglass attenuation measures 5.2 x 3.5 x 3.9 cm without increase in size. Recommend continued. intermediate frame tender evaluation as low-grade neoplasm May appear similar. Prior surgery; Surgery date: 6+ months; Surgery type: Heart stents; Additional info: Additional areas of groundglass attenuation LABS AND CLINICAL REPORTS: Glucose: 127 mg/dl Treatment strategy for malignancy (PET staging): Initial Staging (PI) TECHNIQUE: Imaging protocol: Following at least four-hour fasting and following the injection of radiopharmaceutical, low dose CT images were obtained. Then, PET images were obtained. Attenuation corrected images were constructed using the CT scan. Fused images of PET and CT were reviewed. The standardized uptake values (SUV) reported below are maximum values within a region of interest, expressed in gm/ml. Exam includes orbital meatal line to mid-thigh. Radiopharmaceutical: 14.09 mCi F-18 FDG (Fluorodeoxyglucose), IV. Time of imaging post radiopharmaceutical administration: 1 hour Injection site: Left antecubital COMPARISON: CT chest 06/21/2023, CT chest 02/20/2023, PT PET Scan 02/11/2022 8:05 AM FINDINGS: Brain: Visualized brain has normal physiologic uptake. Oral cavity: There is physiologic appearing uptake in the region of the tongue. Pharynx: No abnormal uptake. Larynx: No abnormal uptake. Thyroid: Postoperative changes are noted related to thyroidectomy. No abnormal uptake in the operative bed. Lungs, pleura and trachea: Regions of ground-glass density in both lungs involving the right upper lobe and left lower lobe are similar compared with 06/21/2023, most pronounced in the medial left lower lobe on series 3, image 88 in a region measuring 5.2 x 2.8 cm in the axial plane. These regions are not radiotracer avid. Two similar solid non radiotracer avid inferior right upper lobe nodules are noted on series 3, image 94 measuring 4 mm anteriorly and 4 mm medially. All of these findings appears similar to the prior PET-CT. A right upper lobe calcified granuloma is noted. Heart: Normal physiologic uptake. Mediastinal space: No abnormal uptake. Liver: No abnormal uptake. Gallbladder and bile ducts: No abnormal uptake. Pancreas: No abnormal uptake. Spleen: No abnormal uptake. Adrenal glands: No abnormal uptake. Kidneys and ureters: Normal physiologic uptake. Stomach and bowel: No abnormal uptake. There are scattered colonic diverticula. Vasculature: No abnormal uptake. There are diffuse atherosclerotic changes. An infrarenal abdominal aortic aneurysm measures up to 4.6 x 4.1 cm on series 3, image 156. Lymph nodes: No abnormal uptake. No lymphadenopathy in the head, neck, chest, abdomen, pelvis, and extremities. Bones/joints: No abnormal uptake in the visualized axial and appendicular skeleton. The bones appear demineralized. Healed posteromedial left 8th through 11th rib fractures are noted. Degenerative changes in the spine are present. Soft tissues: Mild, likely physiologic uptake in the prevertebral soft tissues on the left at the level of the cervical spine on series 3, image 229 is noted, SUV max 3.9 without evidence of a discrete lesion on the CT images. METRICS: Mediastinal blood pool: SUV max 1.8 PET/PET skulltothi SUBSEQ [id number] IMPRESSION: 1. No evidence of radiotracer avid malignancy. 2. Regions of ground-glass density in both lungs are noted which appear stable compared with at least the prior PET-CT. These regions are not radiotracer avid favoring a benign etiology however subsolid pulmonary lesions can be suboptimally characterized by PET-CT. 3. Similar small solid nodules in the inferior right upper lobe without elevated uptake. Assessment of small nodules is limited by PET-CT. 4. Infrarenal abdominal aortic aneurysm. 5. Colonic diverticulosis.
== END 2023-09-25 10:25 | disposition home or self-care (01) ==
LOC: RAD 10:25
PROVIDERS: PCP Nurse Practitioner Family; Visit Provider Internal Medicine Pulmonary Disease
DX: R93.89 Abnormal findings on diagnostic imaging of other specified body structures (principal); E04.1 Nontoxic single thyroid nodule; I71.43 Infrarenal abdominal aortic aneurysm, without rupture; K57.90 Diverticulosis of intestine, part unspecified, without perforation or abscess without bleeding
CPT/HCPCS: 78815; 99214; A9552

== ENCOUNTER → 2023-10-04 11:00 | Outpatient (BNVA) | payer MEDICARE, MEDICAID, SELFPAY | PROVIDERS: PCP Nurse Practitioner Family; Visit Provider Internal Medicine Cardiovascular Disease | DX: E78.00 Pure hypercholesterolemia, unspecified (principal); I10 Essential (primary) hypertension; Z95.5 Presence of coronary angioplasty implant and graft | CPT/HCPCS: 99213 ==

== ENCOUNTER 2023-10-30 11:39 | Outpatient (CLI) | payer MEDICARE, MEDICAID, SELFPAY ==
--- NOTE | 2023-10-30 12:00 | US_ITS ---
WS: [id number] US pelv w/transvag [id number] HISTORY: ovarian Mass COMPARISON: PET/CT 09/25/2023 Uterus is been surgically removed. No midline mass. Visualized urinary bladder is negative. Right ovary: Not identified. No adnexal mass or free fluid. Left ovary: 1.0 cm x 0.8 cm x 0.8 cm. Small caliber ovary is expected. No increased vascularity. No m ass. No fluid in the pelvis. US/US pelv w/transvag [id number] IMPRESSION: 1. RIGHT ovary is not identified. No RIGHT adnexal mass. 2. Normal postmenopausal LEFT ovary. 3. Prior hysterectomy.
== END 2023-10-30 11:40 | disposition home or self-care (01) ==
LOC: RAD 11:39
PROVIDERS: PCP Nurse Practitioner Family; Visit Provider Internal Medicine
DX: N83.9 Noninflammatory disorder of ovary, fallopian tube and broad ligament, unspecified (principal)
CPT/HCPCS: 76830; 76856

== ENCOUNTER → 2023-11-05 12:42 | Outpatient (BNVA) | payer MEDICARE, MEDICAID, SELFPAY | PROVIDERS: PCP Nurse Practitioner Family; Visit Provider Internal Medicine Pulmonary Disease | DX: J44.9 Chronic obstructive pulmonary disease, unspecified (principal); R91.8 Other nonspecific abnormal finding of lung field | CPT/HCPCS: 99214 ==

== ENCOUNTER → 2023-11-08 10:00 | Outpatient (BNVA) | payer MEDICARE, MEDICAID, SELFPAY | PROVIDERS: PCP Nurse Practitioner Family; Visit Provider Internal Medicine | DX: C73 Malignant neoplasm of thyroid gland (principal); E03.9 Hypothyroidism, unspecified; Z79.890 Hormone replacement therapy | CPT/HCPCS: 99214 ==

== ENCOUNTER 2023-12-25 10:05 | Outpatient (CLI) | payer MEDICARE, MEDICAID, SELFPAY ==
[2023-12-25 11:04] LABS: Free T4 Free Thyroxine 2.11 ng/dL (0.82-1.77); Thyroid Stimulating Hormone 0.05 uIU/mL (0.27-4.20)
[2023-12-27 13:55] LABS: Thyroglobulin AB <1 IU/mL (< or = 1)
== END 2023-12-25 10:06 | disposition home or self-care (01) ==
LOC: LAB 10:06
PROVIDERS: PCP Nurse Practitioner Family; Visit Provider Internal Medicine
DX: E03.9 Hypothyroidism, unspecified (principal); C73 Malignant neoplasm of thyroid gland; E04.1 Nontoxic single thyroid nodule
CPT/HCPCS: 36415; 84432; 84439; 84443; 86800

== ENCOUNTER → 2024-01-01 09:00 | Outpatient (BNVA) | payer MEDICARE, MEDICAID, SELFPAY | PROVIDERS: PCP Nurse Practitioner Family; Visit Provider Internal Medicine | DX: C73 Malignant neoplasm of thyroid gland (principal); E03.9 Hypothyroidism, unspecified; N83.8 Other noninflammatory disorders of ovary, fallopian tube and broad ligament; E04.1 Nontoxic single thyroid nodule; Z79.890 Hormone replacement therapy | CPT/HCPCS: 99214 ==

== ENCOUNTER 2024-03-11 11:29 | Outpatient (CLI) | payer MEDICARE, MEDICAID, SELFPAY ==
[2024-03-11 12:22] LABS: Thyroid Stimulating Hormone 0.16 uIU/mL (0.27-4.20)
== END 2024-03-11 11:30 | disposition home or self-care (01) ==
LOC: LAB 11:30
PROVIDERS: PCP Nurse Practitioner Family; Visit Provider Internal Medicine
DX: E04.1 Nontoxic single thyroid nodule (principal); C73 Malignant neoplasm of thyroid gland; E03.9 Hypothyroidism, unspecified; N83.8 Other noninflammatory disorders of ovary, fallopian tube and broad ligament
CPT/HCPCS: 36415; 84432; 84439; 84443; 86800

== ENCOUNTER → 2024-03-18 09:00 | Outpatient (BNVA) | payer MEDICARE, MEDICAID, SELFPAY | PROVIDERS: PCP Nurse Practitioner Family; Visit Provider Internal Medicine | DX: E04.1 Nontoxic single thyroid nodule (principal); C73 Malignant neoplasm of thyroid gland; E03.9 Hypothyroidism, unspecified; N83.8 Other noninflammatory disorders of ovary, fallopian tube and broad ligament; Z79.890 Hormone replacement therapy | CPT/HCPCS: 99214 ==

== ENCOUNTER 2024-04-01 12:09 | Outpatient (CLI) | payer MEDICARE, SELFPAY ==
--- NOTE | 2024-04-01 12:14 | XRR_ITS ---
PROCEDURE INFORMATION: Exam: XR Right Knee Exam date and time: 04/01/2024 12:21 PM Age: 73 years old Clinical indication: Pain; Knee; Right; Additional info: M25.561 - pain in right knee TECHNIQUE: Imaging protocol: Radiologic exam of the right knee. Views: 3 views. COMPARISON: No relevant prior studies available. FINDINGS: Bones/joints: There is normal anatomic alignment of the right knee. No evidence of a fracture or destructive bone lesion. There are mild osteoarthritic changes of the patellofemoral compartment. No evidence of a right knee effusion. Soft tissues: Normal. Vasculature: There are calcified atherosclerotic plaques projecting over the popliteal artery and proximal tibial arteries. XR/XR knee RT 3V* [id number] IMPRESSION: Minor osteoarthritic changes of the right knee. No acute abnormality is appreciated. If clinical concern persists consider MRI evaluation.
== END 2024-04-01 12:10 | disposition home or self-care (01) ==
LOC: RAD 12:09
PROVIDERS: PCP Nurse Practitioner Family; Visit Provider Nurse Practitioner Family
DX: M25.561 Pain in right knee (principal)
CPT/HCPCS: 73562

== ENCOUNTER 2024-04-10 11:36 | Outpatient (CLI) | payer MEDICARE, SELFPAY ==
--- NOTE | 2024-04-10 12:15 | MR_ITS ---
WS: [id number] MRI RIGHT KNEE HISTORY: M25.569 - Pain in unspecified knee COMPARISON: Radiograph 04/01/2024 Anterior cruciate ligament: Intact. Posterior cruciate ligament: Intact. Medial collateral ligament: Mild displacement of the MCL from the joint line by the slightly extruded meniscus. Posterior lateral corner structures: Intact. Medial menisci: Mild intrasubstance degeneration in the posterior horn. Very slight blunting of the f ree edge but no tear identified. Intermediate signal extends to the inferior articular surface of the posterior horn. Cannot confirm a tear. Lateral meniscus: Intact. Normal signal, size and shape. Extensor mechanism: Distal quadriceps tendon and patellar tendons are intact. Fluid and soft tissue: Small suprapatellar joint effusion. Small Briones's cyst. Osseous and articular structures: Patellofemoral compartment: Mild patellofemoral joint space narrowing. No fractures or marrow edema. Medial compartment: Mild narrowing of the medial compartment with diffuse thinning and fissuring of t he cartilage along the weightbearing surfaces. No full-thickness cartilage defect. No marrow edema. Lateral compartment: Mild narrowing of the lateral compartment. No marrow edema. MR/MR knee RT wo con* [id number] IMPRESSION: 1. Mild intrasubstance degeneration in the posterior horn of the medial menisc us. No definite tear is identified. 2. Mild narrowing of the medial compartment with diffuse thinning and fissurin g of the cartilage along the weightbearing surfaces. No marrow edema. 3. Very mild narrowing of the lateral compartment. 4. Small Briones's cyst.
== END 2024-04-10 11:37 | disposition home or self-care (01) ==
LOC: RAD 11:37
PROVIDERS: PCP Nurse Practitioner Family; Visit Provider Nurse Practitioner Family
DX: M71.21 Synovial cyst of popliteal space [Baker], right knee (principal); M25.561 Pain in right knee
CPT/HCPCS: 73721

== ENCOUNTER 2024-09-16 08:58 | Outpatient (CLI) | payer MEDICARE, SELFPAY ==
[2024-09-16 10:02] LABS: Free T4 Free Thyroxine 1.77 ng/dL (0.82-1.77); Thyroid Stimulating Hormone 0.16 uIU/mL (0.27-4.20)
== END 2024-09-16 08:59 | disposition home or self-care (01) ==
PROVIDERS: PCP Nurse Practitioner Family; Visit Provider Internal Medicine
DX: E04.1 Nontoxic single thyroid nodule (principal); C73 Malignant neoplasm of thyroid gland
CPT/HCPCS: 84432; 84439; 84443; 86800

== ENCOUNTER → 2024-09-23 10:05 | Outpatient (BNVA) | payer MEDICARE, MEDICAID, SELFPAY | PROVIDERS: PCP Nurse Practitioner Family; Visit Provider Internal Medicine | DX: C73 Malignant neoplasm of thyroid gland (principal); E03.9 Hypothyroidism, unspecified; N83.8 Other noninflammatory disorders of ovary, fallopian tube and broad ligament; E04.1 Nontoxic single thyroid nodule | CPT/HCPCS: 99214 ==

== ENCOUNTER → 2024-09-29 14:48 | Outpatient (BNVA) | payer MEDICARE, MEDICAID, SELFPAY | PROVIDERS: PCP Nurse Practitioner Family; Visit Provider Internal Medicine Cardiovascular Disease | DX: I25.10 Atherosclerotic heart disease of native coronary artery without angina pectoris (principal); E78.5 Hyperlipidemia, unspecified; I10 Essential (primary) hypertension; Z79.82 Long term (current) use of aspirin; I25.2 Old myocardial infarction; Z95.5 Presence of coronary angioplasty implant and graft; Z87.891 Personal history of nicotine dependence | CPT/HCPCS: 99214 ==

== ENCOUNTER → 2024-11-19 07:52 | Outpatient (BNVA) | payer MEDICARE, MEDICAID, SELFPAY | PROVIDERS: PCP Nurse Practitioner Family; Visit Provider Nurse Practitioner Family | DX: R50.9 Fever, unspecified (principal); J06.9 Acute upper respiratory infection, unspecified | CPT/HCPCS: 87400; 87426 ==

== ENCOUNTER 2025-02-02 10:55 | Outpatient (CLI) | payer MEDICARE, SELFPAY ==
--- NOTE | 2025-02-02 11:15 | USR_ITS ---
PROCEDURE INFORMATION: Exam: US Soft Tissue Head and Neck, Thyroid Exam date and time: 02/02/2025 11:25 AM Age: 74 years old Clinical indication: Condition or disease; Cancer; Thyroid; Additional info: Thyroid cancer, make close to next visit TECHNIQUE: Imaging protocol: Real-time ultrasound scan of the neck with image documentation. Exam focused on the thyroid. COMPARISON: US thyroid [id number] 08/24/2023 3:51 PM FINDINGS: The thyroid is surgically absent. No abnormal masses are identified in the thyroid resection bed. No residual thyroid tissue is identified. No abnormal lymph nodes in the visualized portions of the cervical chain bilaterally. US/US thyroid [id number] IMPRESSION: Thyroid is surgically absent. No abnormal masses or lymph nodes are identified.
[2025-02-02 12:36] LABS: Free T4 Free Thyroxine 1.65 ng/dL (0.82-1.77); Thyroid Stimulating Hormone 0.64 uIU/mL (0.27-4.20)
== END 2025-02-02 10:56 | disposition home or self-care (01) ==
PROVIDERS: PCP Registered Nurse; Visit Provider Internal Medicine
DX: C73 Malignant neoplasm of thyroid gland (principal); E03.9 Hypothyroidism, unspecified; E04.1 Nontoxic single thyroid nodule; Z90.89 Acquired absence of other organs
CPT/HCPCS: 36415; 76536; 84439; 84443

== ENCOUNTER → 2025-03-24 10:04 | Outpatient (BNVA) | payer MEDICARE, SELFPAY | PROVIDERS: PCP Registered Nurse; Visit Provider Internal Medicine | DX: C73 Malignant neoplasm of thyroid gland (principal); E03.8 Other specified hypothyroidism; N83.8 Other noninflammatory disorders of ovary, fallopian tube and broad ligament; E27.8 Other specified disorders of adrenal gland | CPT/HCPCS: 99214 ==

== ENCOUNTER 2025-04-02 15:03 | Outpatient (CLI) | payer MEDICARE, SELFPAY ==
--- NOTE | 2025-04-02 16:15 | CTR_ITS ---
PROCEDURE INFORMATION: Exam: CT Abdomen And Pelvis Without And With Contrast Exam date and time: 04/02/2025 4:30 PM Age: 74 years old Clinical indication: Abnormal findings; Abnormal radiologic finding of the abdomen; Radiologic exam and body structure: Pet scan; Prior surgery; Surgery date: 6+ months; Surgery type: Partial hyst; HX of thyroid cancer; Additional info: Ovarian mass TECHNIQUE: Imaging protocol: Computed tomography of the abdomen and pelvis without and with contrast. Radiation optimization: All CT scans at this facility use at least one of these dose optimization techniques: automated exposure control; mA and/or kV adjustment per patient size (includes targeted exams where dose is matched to clinical indication); or iterative reconstruction. Contrast material: OMNI 350; Contrast volume: 100 ml; Contrast route: INTRAVENOUS (IV); COMPARISON: 1. PT PET skulltothigh SUBSEQ [id number] 09/25/2023 11:[address] chest ION (PULM ONLY) [id number] 02/20/2023 8:07 AM RADIATION DOSE METRICS: Total DLP (mGy-cm): 637.61 FINDINGS: Lungs: Ground-glass attenuation in the left lower lobe again demonstrated although incompletely imaged and adequate comparison can not be made. Bibasilar subsegmental atelectasis/scarring. Stable left lower lobe subpleural ovoid 6 x 3 mm nodule, few additional stable less than 6 mm nodules. Coronary arteries: Coronary artery calcifications, incompletely imaged. Diaphragm: Small hiatal hernia again demonstrated. Liver: Liver is normal. No lesions. Gallbladder and biliary ducts: Gallbladder is normal. No calcified stones. No ductal dilatation. Pancreas: Pancreas is normal. No ductal dilatation. Spleen: Spleen is normal. Adrenal glands: No adrenal mass. Kidneys and ureters: Left lower pole 3.2 cm exophytic renal cyst. Few small subcentimeter cortical hypodensities too small to characterize, likely cysts, no follow-up imaging indicated. No hydronephrosis. No stones identified. Stomach and bowel: No bowel obstruction. Colonic diverticulosis without evidence of diverticulitis. Enteric contrast present within the stomach, small bowel, and colon. Appendix: No evidence of appendicitis. Intraperitoneal space: No free air. No significant fluid collection. Vasculature: Infrarenal abdominal aortic aneurysm measures 4.6 x 4.7 cm (APxT) measured on axial images at the L4-L5 level, previously 4.3 x 4.4 cm when measured in similar fashion on PET-CT 09/25/2023. Measures 4.6 cm in diameter measured on coronal images. AAA demonstrates wall calcification and diffuse mural thrombus. No periaortic stranding/fluid or hematoma. Included distal descending thoracic and upper abdominal aorta demonstrate scattered calcified plaque and irregular noncalcified plaque which protrudes into the lumen with short-segment approximately 50% stenosis just below the level of the renal arteries. Atherosclerotic disease of the aortic branches. Limited by technique, there appears to be moderate ostial stenosis of the SMA followed by [id number] disease and suspected significant stenosis of the proximal left renal artery. Celiac and right renal artery ostial stenosis difficult to exclude. Iliac and proximal femoral artery atherosclerotic disease. Lymph nodes: No enlarged lymph nodes. Urinary bladder: Urinary bladder is unremarkable for degree of distention. Reproductive: Status post hysterectomy. No adnexal mass. Approximately 1 cm calcification in the region of the vaginal cuff on the left is unchanged. Bones/joints: No acute abnormality. Osteopenia. Multilevel degenerative changes of the included spine. Minimal grade 1 anterolisthesis of L4 on L5. Remote left lower posterior rib fractures. Soft tissues: Unremarkable. CT/CT abdomen pelvis wo/w [id number] IMPRESSION: 1. No acute abnormailty in the abdomen or pelvis. 2. Infrarenal abdominal aortic aneurysm measures 4.7 cm in diameter, previously 4.4 cm on PET-CT 09/25/2023 when measured in similar fashion. Atherosclerotic disease as detailed above. 3. Colonic diverticulosis without evidence of acute diverticulitis. 4. Ground-glass attenuation in the left lower lobe again demonstrated although incompletely imaged and adequate comparison can not be made. Few small stable pulmonary nodules. CT chest imaging can be obtained as clinically indicated. 5. Other chronic and incidental findings as detailed above. COMMENTS: Consistent with the [employer] [place] [employer]'s Incidental Findings Committee white paper (J Am Rashawn Radiol 2018): Any incidental renal lesion less than 1 cm or classified as too small to characterize, or any incidental cystic renal lesion characterized as simple-appearing, is likely benign. No follow-up imaging is recommended for these lesions per consensus recommendations based on imaging criteria.
[2025-04-02 16:28] LABS: Blood Urea Nitrogen 16 mg/dL (8-23)
[2025-04-02] MEDS: iohexol 350 mg/mL 500 mL Btl (per mL) PO (16:42)
[2025-04-02] MEDS: iohexol 350 mg/mL 500 mL Btl (per mL) IV (16:43)
== END 2025-04-02 15:04 | disposition home or self-care (01) ==
LOC: RAD 15:03
PROVIDERS: PCP Registered Nurse; Visit Provider Internal Medicine
DX: N83.8 Other noninflammatory disorders of ovary, fallopian tube and broad ligament (principal); J98.11 Atelectasis; R91.8 Other nonspecific abnormal finding of lung field; I25.84 Coronary atherosclerosis due to calcified coronary lesion; K44.9 Diaphragmatic hernia without obstruction or gangrene; I71.43 Infrarenal abdominal aortic aneurysm, without rupture; K57.90 Diverticulosis of intestine, part unspecified, without perforation or abscess without bleeding
CPT/HCPCS: 74178; 82565; 84520